=== PATIENT | male | born 1955 | race Caucasian/White ===

== ENCOUNTER 2021-12-20 09:27 | Emergency (ER) | payer MEDICARE, OTHER ==
--- OUTSIDE RECORDS SUMMARY | 2021-12-20 09:32 | XMS REPORT | Continuity of Care Document ---
:1955 Author Organization [facility] t Address [address] [place] [address] Care Team Providers Name Role Phone Karel Hill Attending Clinician Unavailable Edin Bell Attending Clinician Unavailable Edin Bell Admitting Clinician Unavailable Payers Payer Name Policy Type Policy Number Effective Date Expiration Date [facility] [id number] 2021 (MEDICARE 00:00:00 REPLACEMENT HMO) Problems This patient has no known problems. Allergies, Adverse Reactions, Alerts This patient has no known allergies or adverse reactions. Medications This patient has no known medications. Procedures This patient has no known procedures. Encounters Start End Encounter Admission Attending Care Care Encounter Source Date/Time Date/Time Type Type Clinicians Facility Department ID 2021-11-20 Outpatient Hill, [facility] [id number] Common 12:02:00 Karel [facility] 2021-10-05 Outpatient Hill, [facility] [id number] Common 08:42:00 Karel [facility] 2021-09-12 Outpatient Hill, [facility] [id number] Common 10:00:20 Karel [facility] 2021-06-13 Outpatient Hill, [facility] [id number] Common 09:22:02 Karel [facility] 2021-05-23 Outpatient Hill, [facility] [id number] Common 14:38:41 Karel [facility] 2021-05-23 Outpatient Hill, [facility] [id number] Common 14:30:24 [facility] 2021-05-23 Outpatient Hill, [facility] [id number] Common 14:25:50 [facility] [address] [facility] 2021-05-23 Outpatient Hill, [facility] [id number] Common 14:24:20 [facility] [address] [facility] 2021-05-23 Outpatient Hill, [facility] [id number] Common 13:49:29 [facility] [address] [facility] 2021-05-23 Outpatient Hill, [facility] [id number] Common 13:37:10 [facility] [address] [facility] 2021-05-23 Outpatient Hill, [facility] [id number] Common 13:29:57 [facility] [address] [facility] 2021-05-23 Outpatient Hill, [facility] [id number] Common 13:29:04 [facility] [address] [facility] 2021-05-23 Outpatient [facility] ST[facility] [id number] Common 13:28:51 [address] [facility] 2021-05-23 Outpatient [facility] [id number] Common 13:24:[address] [place] [address] 2021-05-23 Outpatient [facility] [id number] Common 13:12:[address] [place] [address] 2021-05-23 Outpatient Bell, [facility] [id number] Common 12:53:[address] [place] [address] 2021-05-23 Outpatient Bell, [facility] [id number] Common 12:50:[address] [place] [address] 2021-12-03 2021-12-03 ambulatory [facility] [id number] Common 00:00:00 00:00:00 [facility] 2021-11-21 2021-11-21 ambulatory [facility] [id number] Common 00:00:00 00:00:00 [facility] 2021-11-20 2021-11-20 ambulatory [facility] ST[facility] [id number] Common 00:00:00 00:00:00 [facility] 2021-11-19 2021-11-19 ambulatory [facility] ST[facility] [id number] Common 00:00:00 00:00:00 [facility] 2021-11-09 2021-11-09 Outpatient DMG DMG [id number] [facility] 07:18:00 07:18:00 [facility] 2021-10-05 2021-10-05 ambulatory [facility] ST[facility] [id number] Common 00:00:00 00:00:00 [facility] 2021-09-28 2021-09-28 ambulatory STL[facility]C ST[facility] [id number] Common 00:00:00 00:00:00 [facility] 2021-09-28 2021-09-28 ambulatory STLMLC ST[facility] [id number] Common 00:00:00 00:00:00 [facility] 2021-09-27 2021-09-27 ambulatory [facility]C ST[facility] [id number] Common 00:00:00 00:00:00 [facility] 2021-09-17 2021-09-17 ambulatory STLMLC STL[facility] [id number] Common 00:00:00 00:00:00 [facility] 2021-09-14 2021-09-14 ambulatory STL[facility]C ST[facility] [id number] Common 00:00:00 00:00:00 [facility] 2021-08-22 2021-08-22 ambulatory STLMLC STL[facility]C [id number] Common 00:00:00 00:00:00 [facility] 2021-08-10 2021-08-10 ambulatory STLMLC STL[facility]C [id number] Common 00:00:00 00:00:00 [facility] 2021-08-08 2021-08-08 ambulatory STLMLC STL[facility]C [id number] Common 00:00:00 00:00:00 [facility] 2021-07-17 2021-07-17 ambulatory STLMLC STL[facility] [id number] Common 00:00:00 00:00:00 [facility] 2021-07-17 2021-07-17 ambulatory STLMLC STLMLC [id number] Common 00:00:00 00:00:00 [facility] 2021-06-27 2021-06-27 Outpatient DMG DMG [id number] [facility] 09:01:00 09:01:00 [facility] 2021-06-18 2021-06-18 ambulatory STLMLC STL[facility]C [id number] Common 00:00:00 00:00:00 [facility] 2021-06-14 2021-06-14 ambulatory STLMLC ST[facility]C [id number] Common 00:00:00 00:00:00 [facility] 2021-06-14 2021-06-14 ambulatory STLMLC STL[facility]C [id number] Common 00:00:00 00:00:00 [facility] 2021-06-13 2021-06-13 ambulatory STLMLC STLMLC [id number] Common 00:00:00 00:00:00 [facility] 2021-06-08 2021-06-08 ambulatory STLMLC STL[facility]C [id number] Common 00:00:00 00:00:00 [facility] 2021-05-17 2021-05-17 ambulatory STLMLC STLMLC [id number] Common 00:00:00 00:00:00 [facility] 2021-05-15 2021-05-15 ambulatory STLMLC STLMLC [id number] Common 00:00:00 00:00:00 [facility] 2021-05-15 2021-05-15 ambulatory STLMLC STL[facility]C [id number] Common 00:00:00 00:00:00 [facility] 2021-05-01 2021-05-01 ambulatory STLMLC STLMLC [id number] Common 00:00:00 00:00:00 [facility] 2021-04-10 2021-04-10 ambulatory STLMLC STL[facility]C [id number] Common 00:00:00 00:00:00 [facility] 2021-04-09 2021-04-09 ambulatory STLMLC STL[facility]C [id number] Common 00:00:00 00:00:00 [facility] 2021-04-03 2021-04-03 ambulatory STLMLC STL[facility]C [id number] Common 00:00:00 00:00:00 [facility] 2021-04-02 2021-04-02 ambulatory STLMLC STL[facility]C [id number] Common 00:00:00 00:00:00 [facility] 2021-03-14 2021-03-14 ambulatory STLMLC STL[facility]C [id number] Common 00:00:00 00:00:00 [facility] 2021-03-14 2021-03-14 ambulatory STLMLC STL[facility]C [id number] Common 00:00:00 00:00:00 [facility] 2021-03-12 2021-03-12 ambulatory STLMLC STL[facility]C [id number] Common 00:00:00 00:00:00 [facility] 2021-02-22 2021-02-22 Outpatient DMG [id number] [facility] 08:03:00 08:03:00 [facility] 2021-01-23 2021-01-23 Outpatient STLMLC STLMLC [id number] Common 00:00:00 00:00:00 [facility] 2021-01-22 2021-01-22 Outpatient STLMLC STL[facility]C [id number] Common 00:00:00 00:00:00 [facility] 2021-01-04 2021-01-04 Outpatient STLMLC STL[facility]C [id number] Common 00:00:00 00:00:00 [facility] 2021-01-02 2021-01-02 Outpatient STLMLC STL[facility]C [id number] Common 00:00:00 00:00:00 [facility] 2020-12-28 2020-12-28 Outpatient STLMLC STLMLC [id number] Common 00:00:00 00:00:00 [facility] 2020-12-27 2020-12-27 Outpatient STLMLC STLMLC [id number] Common 00:00:00 00:00:00 [facility] 2020-12-19 2020-12-19 Outpatient STLMLC STLMLC [id number] Common 00:00:00 00:00:00 [facility] 2020-12-19 2020-12-19 Outpatient STLMLC STLMLC [id number] Common 00:00:00 00:00:00 [facility] 2020-12-06 2020-12-06 Outpatient STLMLC STLMLC [id number] Common 00:00:00 00:00:00 [facility] 2020-12-04 2020-12-04 Outpatient STLMLC STLMLC [id number] Common 00:00:00 00:00:00 [facility] 2020-12-04 2020-12-04 Outpatient STLMLC STL[facility]C [id number] Common 00:00:00 00:00:00 [facility] 2020-12-04 2020-12-04 Outpatient STLMLC STL[facility]C [id number] Common 00:00:00 00:00:00 [facility] 2020-11-27 2020-11-27 Outpatient STLMLC STLMLC [id number] Common 00:00:00 00:00:00 [facility] 2020-11-23 2020-11-23 Outpatient STLMLC STLMLC [id number] Common 00:00:00 00:00:00 [facility] Results This patient has no known results.
[2021-12-20] MEDS ORDERED: HYDROCODONE/APAP 5/325 MG TAB ONE (09:59)
--- NOTE | 2021-12-20 10:42 | RAD REPORT ---
EXAM DESCRIPTION: RAD - Shoulder Left 2 View - 12/20/2021 10:25 am CLINICAL HISTORY: PAIN, fall with shoulder pain COMPARISON: No comparisons TECHNIQUE: Internal and external rotation views of the left shoulder were obtained. FINDINGS: There is no fracture or dislocation. Mild AC joint degenerative changes are present with i nferiorly directed spurring. The acromial humeral joint space is significantly narrowed. No soft tiss ue calcifications. This superior migration of the humeral head can be seen with chronic rotator cuff tear. No pathologic process. IMPRESSION: Left shoulder degenerative change with probable chronic rotator cuff tear. No fracture, dislocation or acute finding.
--- NOTE | 2021-12-20 10:43 | RAD REPORT ---
EXAM DESCRIPTION: RAD - Hip Right 2 View - 12/20/2021 10:25 am CLINICAL HISTORY: PAIN COMPARISON: No comparisons FINDINGS: AP and frog-leg views of the right hip were obtained. There is no fracture or dislocation. No AVN or focal head abnormality. Mild degenerative change at th e hip joint with medial joint space narrowing and minimal acetabular marginal spurring. Superior and inferior pubic rami appear intact. Partially imaged right hemipelvis shows no identifiab le fracture. IMPRESSION: Mild right hip joint degenerative change. No acute fractures seen.
--- NOTE | 2021-12-20 10:48 | EDPHYS ---
Physician Documentation [facility] Name: Rupert Augustin Age: 66 yrs Sex: Male : 1955 Arrival Date: 12/20/2021 Time: 09:30 Bed 9 Private MD: Sergio [facility] ED Physician Hussein Jasso HPI: 12/20 09:44 This 66 yrs old Male presents to ER via Ambulatory with complaints of Fall Injury, Left pm1 Shoulder Pain, Right Hip Pain. 09:44 Details of fall: The patient fell from a height, 1 foot step stool. Onset: The pm1 symptoms/episode began/occurred yesterday. Associated injuries: The patient sustained left shoulder, painful injury, right hip, painful injury. Severity of symptoms: in the emergency department the symptoms are unchanged. The patient has not experienced similar symptoms in the past, Patient has not experienced a fall injury of this nature in the past but he has a non-operable left rotator cuff tear that is being managed by Dr Natarajan with steroid injections to his shoulders. The patient has not recently seen a physician. 66-year-old male presenting to the ER with complaints left shoulder and right hip pain status post fall. Patient was standing on a 1 foot step stool and cleaning his ceiling fan with the swifter in his left hand. The step stool slipped out from underneath him and he landed on his back. Landed on his left shoulder and right hip at the same time. Patient denies hitting his head on the ground. Negative LOC, headache, head injury, neck pain. Patient is able to walk but reports pain to his right hip. Chronic bilateral shoulder pain present that is being managed by Dr. Natarajan. Patient receives scheduled steroid injections to bilateral shoulders. Patient's left arm was extended with a Kathy through his hand when he fell. Patient reports pain with attempting to raise his left arm. Patient has an appointment with Dr. Natarajan scheduled for next week. Historical: - Allergies: 09:42 No Known Allergies; iw - PMHx: 09:42 Hypertensive disorder; iw - Immunization history:: Adult Immunizations unknown. - Social history:: Smoking status: unknown. ROS: 09:44 Constitutional: Negative for fever, chills, and weight loss, Neck: Negative for injury, pm1 pain, and swelling, Cardiovascular: Negative for chest pain, palpitations, and edema, Respiratory: Negative for shortness of breath, cough, wheezing, and pleuritic chest pain, Abdomen/GI: Negative for abdominal pain, nausea, vomiting, diarrhea, and constipation, Back: Negative for injury and pain. 09:44 Skin: Negative for injury, rash, and discoloration, Neuro: Negative for headache, weakness, numbness, tingling, and seizure. 09:44 MS/extremity: Positive for pain, of the left shoulder and right hip, Negative for deformity. 09:44 All other systems are negative. Exam: 09:44 Constitutional: This is a well developed, well nourished patient who is awake, alert, pm1 and in no acute distress. Head/Face: Normocephalic, atraumatic. 09:44 Skin: Warm, dry with normal turgor. Normal color with no rashes, no lesions, and no evidence of cellulitis. 09:44 Cardiovascular: Exam negative for acute changes, Rate: normal, Rhythm: regular, Pulses: no pulse deficits are appreciated. 09:44 Respiratory: Exam negative for acute changes, respiratory distress, shortness of breath. 09:44 Abdomen/GI: Exam negative for acute changes, Inspection: abdomen appears normal, Palpation: abdomen is soft and non-tender, in all quadrants. 09:44 Back: Exam negative for acute changes, pain, is absent, vertebral tenderness, is not appreciated, muscle spasm, is not present. 09:44 Musculoskeletal/extremity: Extremities: grossly normal except: noted in the right hip: pain, tenderness, Patient is able to walk, There is no evidence of deformity, noted in the anterior aspect of left shoulder: tenderness, no evidence of deformity. 09:44 Neuro: Exam negative for acute changes, Orientation: is normal, Mentation: is normal, Motor: is normal, moves all fours. Vital Signs: 09:43 BP 149 / 92; Pulse 72; Resp 16; Temp 98.3; Pulse Ox 100% on R/A; iw MDM: 09:39 Patient medically screened. pm1 10:45 Data reviewed: vital signs. Data interpreted: Pulse oximetry: on room air is 100 %. pm1 Interpretation: normal. Counseling: I had a detailed discussion with the patient and/or guardian regarding: the historical points, exam findings, and any diagnostic results supporting the discharge/admit diagnosis, radiology results, the need for outpatient follow up, a orthopedic surgeon, to return to the emergency department if symptoms worsen or persist or if there are any questions or concerns that arise at home. 12/20 09:44 Order name: Shoulder Left (2 View) XRAY; Complete Time: 10:43 pm1 12/20 09:44 Order name: Hip Right 2 View XRAY; Complete Time: 10:45 pm1 12/20 09:44 Order name: Sling; Complete Time: 09:56 pm1 Administered Medications: 09:56 Drug: HYDROcodone-acetaminophen 5 mg-325 mg 1 tabs Route: PO; iw 10:30 Follow up: Response: No adverse reaction; Pain is decreased iw Disposition: 12/21 10:49 Co-signature as Attending Physician, Hussein Jasso DO I agree with the assessment and ms3 plan of care. Disposition Summary: 12/20/21 10:47 Discharge Ordered Location: Home pm1 Problem: new pm1 Symptoms: have improved pm1 Condition: Stable pm1 Diagnosis - Pain in left shoulder pm1 - Fall (on) (from) unspecified stairs and steps pm1 - Pain in right hip pm1 Followup: pm1 - With: Emergency Department - When: As needed - Reason: Worsening of condition Followup: pm1 - With: Lucho Natarajan MD - When: 2 - 3 days - Reason: Recheck today's complaints, Continuance of care, Re-evaluation by your physician Discharge Instructions: - Discharge Summary Sheet pm1 - Fall Prevention in the Home, Adult pm1 - Shoulder Pain pm1 - Hip Pain pm1 - How to Use a Sling pm1 Forms: - Medication Reconciliation Form pm1 - Thank You Letter pm1 - Antibiotic Education pm1 - Prescription Opioid Use pm1 Prescriptions: - Lidoderm 5 % Topical adhesive patch,medicated - apply 1 patch by TRANSDERMAL route once daily As needed 12 hours on and 12 pm1 hours off in a 24 hour period; 30 patch; Refills: 0, Product Selection Permitted - Tylenol-Codeine #3 300 mg-30 mg Oral - take 2 tablet by ORAL route every 6 hours As needed; 20 tablet; Refills: 0, pm1 Product Selection Permitted Signatures: Dispatcher [employer] Livier Esqueda RN RN iw Kavin Rodríguez, [employer] pm1 Jasso, Hussein, DO DO ms3
--- NOTE | 2021-12-20 10:48 | ER ---
Nurse's Notes [facility] Name: Rupert Augustin Age: 66 yrs Sex: Male : 1955 Arrival Date: 12/20/2021 Time: 09:30 Bed 9 Private MD: Karel Hill Diagnosis: Pain in left shoulder;Fall (on) (from) unspecified stairs and steps;Pain in right hip Presentation: 12/20 09:40 Chief complaint: Patient states: fell off 1 foot step stool yesterday . landed on left iw shoulder and right hip. 09:40 Acuity: ANA 4 iw 09:41 Coronavirus screen: At this time, the client does not indicate any symptoms associated iw with coronavirus-19. Ebola Screen: Patient negative for fever greater than or equal to 101.5 degrees Fahrenheit, and additional compatible Ebola Virus Disease symptoms Patient denies exposure to infectious person. Patient denies travel to an Ebola-affected area in the 21 days before illness onset. No symptoms or risks identified at this time. Initial Sepsis Screen: Does the patient meet any 2 criteria? No. Patient's initial sepsis screen is negative. Does the patient have a suspected source of infection? No. Patient's initial sepsis screen is negative. Risk Assessment: Do you want to hurt yourself or someone else? Patient reports no desire to harm self or others. Onset of symptoms was December 19, 2021. 09:41 Method Of Arrival: Ambulatory iw Triage Assessment: 09:40 General: Appears in no apparent distress. Behavior is calm, cooperative. iw Historical: - Allergies: 09:42 No Known Allergies; iw - PMHx: 09:42 Hypertensive disorder; iw - Immunization history:: Adult Immunizations unknown. - Social history:: Smoking status: unknown. Screenin:05 Abuse screen: Denies threats or abuse. Denies injuries from another. Nutritional iw screening: No deficits noted. Tuberculosis screening: No symptoms or risk factors identified. Fall Risk Fall in past 12 months (25 points). Assessment: 09:40 General: Appears in no apparent distress. Pain: Complains of pain in left arm and iw anterior aspect of left shoulder. Neuro: Level of Consciousness is awake, alert, obeys commands, Oriented to person, place, time, situation. Respiratory: Respiratory effort is even, unlabored, Respiratory pattern is regular. Derm: Skin is intact, is healthy with good turgor. Musculoskeletal: Range of motion: limited in anterior aspect of left shoulder and right leg. Vital Signs: 09:43 BP 149 / 92; Pulse 72; Resp 16; Temp 98.3; Pulse Ox 100% on R/A; iw ED Course: 09:30 Patient arrived in ED. am2 09:30 Karel Hill DO is Private Physician. am2 09:38 Kavin Rodríguez NP is [facility] pm1 09:38 Hussein Jasso DO is Attending Physician. pm1 09:41 Triage completed. iw 09:41 Arm band placed on. iw 09:50 Livier Soto RN is Primary Nurse. iw 10:26 Shoulder Left (2 View) XRAY In Process Unspecified. EDMS 10:26 Hip Right 2 View XRAY In Process Unspecified. EDMS 10:46 Lucho Natarajan MD is Referral Physician. pm1 11:06 No provider procedures requiring assistance completed. Patient did not have IV access iw during this emergency room visit. Administered Medications: 09:56 Drug: HYDROcodone-acetaminophen 5 mg-325 mg 1 tabs Route: PO; iw 10:30 Follow up: Response: No adverse reaction; Pain is decreased iw Medication: 09:45 VIS not applicable for this client. iw Outcome: 10:47 Discharge ordered by . pm1 11:06 Discharged to home ambulatory. iw 11:06 Condition: good 11:06 Discharge instructions given to 11:07 Patient left the ED. iw Signatures: Dispatcher [employer] EDMS Livier Soto RN RN iw Kavin Rodríguez NP CAR MANAGER pm1 Debbie Weiner am2 Corrections: (The following items were deleted from the chart) 09:45 09:43 Pulse 72bpm; Resp 16bpm; Pulse Ox 100% RA; Temp 98.3F; iw iw
[2021-12-20 11:22] VITALS: BP 149/92; TEMP 98.3; O2SAT 100
== END 2021-12-20 11:07 | disposition home or self-care (01) ==
LOC: ER 09:27
DX: M25.512 Pain in left shoulder (principal); M25.551 Pain in right hip; W10.8XXA Fall (on) (from) other stairs and steps, initial encounter; I10 Essential (primary) hypertension
CPT/HCPCS: 99283

== ENCOUNTER 2022-01-24 13:23 | Emergency (ER) | payer MEDICARE ==
--- OUTSIDE RECORDS SUMMARY | 2022-01-24 13:27 | XMS REPORT | Continuity of Care Document ---
:1955 Author Organization [facility] t Address [address] [place] [address] Care Team Providers Name Role Phone Sergio Karel Sun Attending Clinician Unavailable Edin Bell Attending Clinician Unavailable Edin Bell Admitting Clinician Unavailable Payers Payer Name Policy Type Policy Number Effective Date Expiration Date [facility] [id number] 2021 (MEDICARE 00:00:00 REPLACEMENT HMO) Problems This patient has no known problems. Allergies, Adverse Reactions, Alerts This patient has no known allergies or adverse reactions. Medications This patient has no known medications. Procedures This patient has no known procedures. Encounters Start End Encounter Admission Attending Care Care Encounter Source Date/Time Date/Time Type Type Clinicians Facility Department ID 2022-01-15 [facility] [id number] Common 09:06:01 Karel [facility] 2021-12-21 Out[facility], [facility] [id number] Common 09:23:01 Karel [facility] 2021-11-20 Out[facility], [facility] [id number] Common 12:02:00 Karel [facility] 2021-10-05 Outpatient Hill, [facility] [id number] Common 08:42:00 Karel [facility] 2021-09-12 Outpatient Hill, [facility] [id number] Common 10:00:20 Karel [facility] 2021-06-13 Outpatient Hill, [facility] [id number] Common 09:22:02 Karel [facility] 2021-05-23 Outpatient Hill, [facility] [id number] Common 14:38:41 Karel [facility] 2021-05-23 Outpatient Hill, [facility] [id number] Common 14:30:24 Karel [facility] 2021-05-23 Outpatient Hill, [facility] [id number] Common 14:25:50 Karel [facility] 2021-05-23 Outpatient Hill, [facility] [id number] Common 14:24:20 Karel [id number] [facility] 2021-05-23 Outpatient Hill, [facility] [id number] Common 13:49:29 Karel [id number] [facility] 2021-05-23 Outpatient Hill, [facility] [id number] Common 13:37:10 Karel [id number] [facility] 2021-05-23 Outpatient Hill, [facility] [id number] Common 13:29:57 Karel [id number] [facility] 2021-05-23 Outpatient Hill, [facility] [id number] Common 13:29:04 Karel 40334 [facility] 2021-05-23 Outpatient [facility] [id number] Common 13:28:51 [id number] [facility] 2021-05-23 Outpatient [facility] [id number] Common 13:24:34 [id number] [facility] 2021-05-23 Outpatient [facility] [id number] Common 13:12:48 [id number] [facility] 2021-05-23 Outpatient Bell, [facility] [id number] Common 12:53:[address] 2021-05-23 Outpatient Bell, [facility] [id number] Common 12:50:58 Edin 36643 [facility] 2022-01-10 2022-01-10 ambulatory [facility] [id number] Common 00:00:00 00:00:00 [facility] 2022-01-08 2022-01-08 ambulatory [facility] [id number] Common 00:00:00 00:00:00 [facility] 2022-01-04 2022-01-04 ambulatory [facility] ST[facility] [id number] Common 00:00:00 00:00:00 [facility] 2021-12-24 2021-12-24 ambulatory [facility] ST[facility] [id number] Common 00:00:00 00:00:00 [facility] 2021-12-03 2021-12-03 ambulatory [facility] ST[facility] [id number] Common 00:00:00 00:00:00 [facility] 2021-11-21 2021-11-21 ambulatory [facility] ST[facility] [id number] Common 00:00:00 00:00:00 [facility] 2021-11-20 2021-11-20 ambulatory [facility] ST[facility] [id number] Common 00:00:00 00:00:00 [facility] 2021-11-19 2021-11-19 ambulatory [facility] ST[facility] [id number] Common 00:00:00 00:00:00 [facility] 2021-11-09 2021-11-09 Outpatient DMG DMG [id number] [facility] 07:18:00 07:18:00 [facility] 2021-10-05 2021-10-05 ambulatory [facility] ST[facility] [id number] Common 00:00:00 00:00:00 [facility] 2021-09-28 2021-09-28 ambulatory STL[facility] STL[facility] [id number] Common 00:00:00 00:00:00 [facility] 2021-09-28 2021-09-28 ambulatory STL[facility]C STL[facility]C [id number] Common 00:00:00 00:00:00 [facility] 2021-09-27 2021-09-27 ambulatory STLMLC STL[facility]C [id number] Common 00:00:00 00:00:00 [facility] 2021-09-17 2021-09-17 ambulatory STLMLC STL[facility]C [id number] Common 00:00:00 00:00:00 [facility] 2021-09-14 2021-09-14 ambulatory STLMLC STL[facility]C [id number] Common 00:00:00 00:00:00 [facility] 2021-08-22 2021-08-22 ambulatory STLMLC STLMLC [id number] Common 00:00:00 00:00:00 [facility] 2021-08-10 2021-08-10 ambulatory STLMLC STL[facility]C [id number] Common 00:00:00 00:00:00 [facility] 2021-08-08 2021-08-08 ambulatory STL[facility]C STL[facility]C [id number] Common 00:00:00 00:00:00 [facility] 2021-07-17 2021-07-17 ambulatory STLMLC STL[facility]C [id number] Common 00:00:00 00:00:00 [facility] 2021-07-17 2021-07-17 ambulatory STL[facility]C STL[facility]C [id number] Common 00:00:00 00:00:00 [facility] 2021-06-27 2021-06-27 Outpatient DMG [id number] [id number] [facility] 09:01:00 09:01:00 [id number] 2021-06-18 2021-06-18 ambulatory STLMLC STL[facility]C [id number] Common 00:00:00 00:00:00 [facility] 2021-06-14 2021-06-14 ambulatory STLMLC STL[facility]C [id number] Common 00:00:00 00:00:00 [facility] 2021-06-14 2021-06-14 ambulatory STLMLC STL[facility]C [id number] Common 00:00:00 00:00:00 [facility] 2021-06-13 2021-06-13 ambulatory STLMLC STLMLC [id number] Common 00:00:00 00:00:00 [facility] 2021-06-08 2021-06-08 ambulatory STLMLC STL[facility]C [id number] Common 00:00:00 00:00:00 [facility] 2021-05-17 2021-05-17 ambulatory STL[facility]C STL[facility]C [id number] Common 00:00:00 00:00:00 [facility] 2021-05-15 2021-05-15 ambulatory STLMLC STL[facility]C [id number] Common 00:00:00 00:00:00 [facility] 2021-05-15 2021-05-15 ambulatory STLMLC STL[facility]C [id number] Common 00:00:00 00:00:00 [facility] 2021-05-01 2021-05-01 ambulatory STLMLC STL[facility]C [id number] Common 00:00:00 00:00:00 [facility] 2021-04-10 2021-04-10 ambulatory STLMLC STL[facility]C [id number] Common 00:00:00 00:00:00 [facility] 2021-04-09 2021-04-09 ambulatory STL[facility]C STL[facility]C [id number] Common 00:00:00 00:00:00 [facility] 2021-04-03 2021-04-03 ambulatory STLMLC STL[facility]C [id number] Common 00:00:00 00:00:00 [facility] 2021-04-02 2021-04-02 ambulatory STL[facility]C STL[facility]C [id number] Common 00:00:00 00:00:00 [facility] 2021-03-14 2021-03-14 ambulatory STLMLC STL[facility]C [id number] Common 00:00:00 00:00:00 [facility] 2021-03-14 2021-03-14 ambulatory STLMLC STL[facility]C [id number] Common 00:00:00 00:00:00 [facility] 2021-03-12 2021-03-12 ambulatory STL[facility]C STL[facility]C [id number] Common 00:00:00 00:00:00 [facility] 2021-02-22 2021-02-22 Outpatient DMG [id number] [id number] [facility] 08:03:00 08:03:00 [id number] 2021-01-23 2021-01-23 Outpatient STL[facility]C STL[facility]C [id number] Common 00:00:00 00:00:00 [facility] 2021-01-22 2021-01-22 Outpatient STLMLC STL[facility]C [id number] Common 00:00:00 00:00:00 [facility] 2021-01-04 2021-01-04 Outpatient STL[facility]C STL[facility]C [id number] Common 00:00:00 00:00:00 [facility] 2021-01-02 2021-01-02 Outpatient STLMLC STL[facility]C [id number] Common 00:00:00 00:00:00 [facility] 2020-12-28 2020-12-28 Outpatient STLMLC STL[facility]C [id number] Common 00:00:00 00:00:00 [facility] 2020-12-27 2020-12-27 Outpatient STLMLC STL[facility]C [id number] Common 00:00:00 00:00:00 [facility] 2020-12-19 2020-12-19 Outpatient STLMLC STL[facility]C [id number] Common 00:00:00 00:00:00 [facility] 2020-12-19 2020-12-19 Outpatient STLMLC STL[facility]C [id number] Common 00:00:00 00:00:00 [facility] 2020-12-06 2020-12-06 Outpatient STLMLC STL[facility]C [id number] Common 00:00:00 00:00:00 [facility] 2020-12-04 2020-12-04 Outpatient STLMLC STL[facility]C [id number] Common 00:00:00 00:00:00 [facility] 2020-12-04 2020-12-04 Outpatient STLMLC STL[facility]C [id number] Common 00:00:00 00:00:00 [facility] 2020-12-04 2020-12-04 Outpatient STLMLC STL[facility]C [id number] Common 00:00:00 00:00:00 [facility] 2020-11-27 2020-11-27 Outpatient STLMLC STL[facility]C [id number] Common 00:00:00 00:00:00 [facility] 2020-11-23 2020-11-23 Outpatient STLMLC STLMLC [id number] Common 00:00:00 00:00:00 [facility] Results This patient has no known results.
[2022-01-24] MEDS ORDERED: HYDROCODONE/APAP 10/325 TAB ONE (14:15)
--- NOTE | 2022-01-24 14:24 | RAD REPORT ---
EXAM DESCRIPTION: CT - Chest Abd Pelvis Wo Con - 01/24/2022 2:08 pm CLINICAL HISTORY: Right rib cage pain s/p fall1 week earlier COMPARISON: No comparisons TECHNIQUE: Axial 5 millimeter thick images of the chest, abdomen and pelvis were obtained without IV contrast. Oral contrast was administered. All CT scans are performed using dose optimization technique as appropriate and may include automated exposure control or mA/KV adjustment according to patient size. FINDINGS: The lungs are clear of pulmonary contusion, mass or infiltrate. No pneumothorax or pleura l effusion. No chest wall mass or abnormal axillary lymphadenopathy seen. Mediastinal and hilar reg ions show no mass or lymphadenopathy. No significant cardiac finding. Nondisplaced fractures of the right seventh-ninth ribs present. No pathologic change. The liver, spleen and pancreas show no significant findings for non contrast imaging. Gallbladder an d biliary tree are normal. Small liver cyst is present lateral aspect right lobe. No hydronephrosis or suspicious renal mass. Isodense masses and pyelonephritis cannot be excluded on non contrast imaging. Small low-density exophytic 2.2 centimeter mass lateral mid left kidney is almo st certainly an incidental cyst. No adrenal abnormalities. No urinary bladder abnormalities. No dilated bowel loops or focal ball bowel wall thickening. No free air, free fluid or inflammatory stranding. No bulky lymphadenopathy or mass. A 15 millimeter umbilical hernia is present. Minimal fa t only right inguinal hernia is present. No acute bone finding. Patient has L5 spondylolysis without spondylolisthesis. Mid and lower lumbar e ndplate and facet degenerative changes are present. IMPRESSION: Nondisplaced fractures of the right 7th-9th ribs with no pathologic bone change. There is no pneumothorax, pulmonary contusion or other rib fracture related findings. CT abdomen and pelvis imaging shows no significant or suspicious finding.
--- NOTE | 2022-01-24 14:40 | ER ---
Nurse's Notes [facility] Name: Rupert Augustin Age: 66 yrs Sex: Male : 1955 Arrival Date: 01/24/2022 Time: 13:26 Bed 20 Private MD: Karel Hill Diagnosis: Multiple fractures of ribs, right side-nondisplaced Presentation: 01/24 13:38 Chief complaint: Patient states: fall 1 week ago after tripping over his dog, landed on [facility] his right side. Was having right rib pain after the fall but while trying to do yard work today felt like he re-injured that side and made the pain worse. Denies any chest pain or SOB. Coronavirus screen: Vaccine status: Patient reports receiving the 2nd dose of the covid vaccine. Ebola Screen: Patient negative for fever greater than or equal to 101.5 degrees Fahrenheit, and additional compatible Ebola Virus Disease symptoms Patient denies exposure to infectious person. Patient denies travel to an Ebola-affected area in the 21 days before illness onset. Initial Sepsis Screen: Does the patient meet any 2 criteria? No. Patient's initial sepsis screen is negative. Does the patient have a suspected source of infection? No. Patient's initial sepsis screen is negative. Risk Assessment: Do you want to hurt yourself or someone else? Patient reports no desire to harm self or others. Onset of symptoms was January 17, 2022. 13:38 Method Of Arrival: Ambulatory mb8 13:38 Acuity: ANA 4 mb8 Triage Assessment: 13:45 General: Appears uncomfortable, Behavior is calm, cooperative, appropriate for age. mb8 Historical: - Allergies: 13:42 No Known Allergies; mb8 - PMHx: 13:42 Hypertensive disorder; mb8 - Social history:: Smoking status: Patient denies any tobacco usage or history of. Screenin:44 Abuse screen: Denies threats or abuse. Denies injuries from another. Nutritional mb8 screening: No deficits noted. Tuberculosis screening: No symptoms or risk factors identified. Fall Risk None identified. Assessment: 13:43 Pain: Complains of pain in right side rib cage Pain does not radiate. Pain currently is mb8 10 out of 10 on a pain scale. Quality of pain is described as aching, Pain began 1 week ago Alleviated by coughing and deep breathing. Vital Signs: 13:38 BP 149 / 93 LA (auto/lg); Pulse 82 LA; Resp 16 S; Temp 98.4; Pulse Ox 100% on R/A; mb8 Weight 79.83 kg; Height 5 ft. 10 in. (177.80 cm); Pain 10/10; 15:09 BP 138 / 70; Pulse 74; Resp 18; Pulse Ox 100% ; Pain 4/10; mb8 13:38 Body Mass Index 25.25 (79.83 kg, 177.80 cm) mb8 ED Course: 13:26 Patient arrived in ED. rg4 13:27 Karel Hill DO is Private Physician. rg4 13:32 Kavin Rod[facility] pm1 13:32 Miguel Vaughan MD is Attending Physician. pm1 13:37 Jamaal Palmer RN is Primary Nurse. mb8 13:42 Triage completed. mb8 13:43 Arm band placed on. mb8 13:44 Patient has correct armband on for positive identification. Placed in gown. Bed in low mb8 position. Call light in reach. Side rails up X2. Client placed on continuous cardiac and pulse oximetry monitoring. NIBP monitoring applied. 13:44 No provider procedures requiring assistance completed. mb8 14:10 Chest Abd Pelvis Wo Con In Process Unspecified. EDMS 14:48 INCENTIVE SPIROMETRY Sent. mb8 15:09 Patient did not have IV access during this emergency room visit. mb8 Administered Medications: 14:20 Drug: [place] (HYDROcodone-acetaminophen) 10 mg-325 mg 1 tabs Route: PO; mb8 15:02 Follow up: Response: No adverse reaction; Pain is decreased mb8 Medication: 13:44 VIS not applicable for this client. mb8 Outcome: 14:40 Discharge ordered by . pm1 15:09 Discharged to home ambulatory. mb8 15:09 Condition: stable 15:09 Discharge instructions given to patient, Instructed on discharge instructions, follow up and referral plans. no drinking with medication, no driving heavy equipment, medication usage, Demonstrated understanding of instructions, follow-up care, medications, Prescriptions given X 1. 15:10 Patient left the ED. mb8 Signatures: Dispatcher [employer] EDMS Kavin Rodríguez NP BIOLOGY MANAGER pm1 Sarah West rg4 Jamaal Palmer, RN RN mb8
--- NOTE | 2022-01-24 14:40 | EDPHYS ---
Physician Documentation [facility] Name: Rupert Augustin Age: 66 yrs Sex: Male : 1955 Arrival Date: 01/24/2022 Time: 13:26 Bed 20 Private MD: Sergio [facility] ED Physician Miguel Vaughan HPI: 01/24 13:52 This 66 yrs old Male presents to ER via Ambulatory with complaints of Fall 1 wk ago Rib pm1 Pain. 13:52 Details of fall: The patient fell from an upright position, while walking. Onset: The pm1 symptoms/episode began/occurred 1 week(s) ago. Associated injuries: The patient sustained right rib cage area. Severity of symptoms: in the emergency department the symptoms are actually worse. The patient has experienced a previous episode, many years ago, left sided rib fractures from fall in his 20s. The patient has not recently seen a physician. 66-year-old male presents the ER with complaints of fall injury, right rib pain. Patient tripped over his small dog in the kitchen and hit his right rib cage area onto the trash can. Patient reports pain was tolerable but he worked on the yard today and it felt like his rib pain got worse. Therefore presented to the ER for treatment and evaluation. 13:52 Negative for head injury, neck pain, LOC, headache. Patient without any shortness of pm1 breath. Historical: - Allergies: 13:42 No Known Allergies; mb8 - PMHx: 13:42 Hypertensive disorder; mb8 - Social history:: Smoking status: Patient denies any tobacco usage or history of. ROS: 13:52 Constitutional: Negative for fever, chills, and weight loss, Respiratory: Negative for pm1 shortness of breath, cough, wheezing, and pleuritic chest pain. 13:52 Neck: Negative for injury, pain, and swelling, Back: Negative for injury and pain, MS/Extremity: Negative for injury and deformity, Skin: Negative for injury, rash, and discoloration, Neuro: Negative for headache, weakness, numbness, tingling, and seizure. 13:52 Cardiovascular: Positive for right rib pain, Negative for palpitations. 13:52 All other systems are negative. Exam: 13:52 Constitutional: This is a well developed, well nourished patient who is awake, alert, pm1 and in no acute distress. Head/Face: Normocephalic, atraumatic. 13:52 Skin: Warm, dry with normal turgor. Normal color with no rashes, no lesions, and no evidence of cellulitis. MS/ Extremity: Pulses equal, no cyanosis. Neurovascular intact. Full, normal range of motion. 13:52 Eyes: Exam is negative for acute changes, Periorbital structures: no acute changes, Extraocular movements: no acute changes, Conjunctiva: no acute changes, no injection. 13:52 ENT: Exam is negative for acute changes, Mouth: no acute changes, Lips: normal, moist, Oral mucosa: normal, pink and intact, moist. 13:52 Cardiovascular: Exam negative for acute changes, Rate: normal, Rhythm: regular, Pulses: no pulse deficits are appreciated, Heart sounds: normal, normal S1and S2. 13:52 Respiratory: Exam negative for acute changes, respiratory distress, shortness of breath, Breath sounds: are clear throughout. 13:52 Abdomen/GI: Inspection: abdomen appears normal, Palpation: abdomen is soft and non-tender, in all quadrants. 13:52 Neuro: Exam negative for acute changes, Orientation: is normal, Mentation: is normal, Motor: is normal, moves all fours, Gait: is steady, at a normal pace, without difficulty. Vital Signs: 13:38 BP 149 / 93 LA (auto/lg); Pulse 82 LA; Resp 16 S; Temp 98.4; Pulse Ox 100% on R/A; mb8 Weight 79.83 kg; Height 5 ft. 10 in. (177.80 cm); Pain 10/10; 15:09 BP 138 / 70; Pulse 74; Resp 18; Pulse Ox 100% ; Pain 4/10; mb8 13:38 Body Mass Index 25.25 (79.83 kg, 177.80 cm) mb8 MDM: 13:32 Patient medically screened. pm1 14:39 Data reviewed: vital signs. Data interpreted: Pulse oximetry: on room air is 100 %. pm1 Interpretation: normal. Counseling: I had a detailed discussion with the patient and/or guardian regarding: the historical points, exam findings, and any diagnostic results supporting the discharge/admit diagnosis, radiology results, the need for outpatient follow up, to return to the emergency department if symptoms worsen or persist or if there are any questions or concerns that arise at home. 14:58 ED course: [place] and patient with recent prescription for Tylenol #[address] Natarajan for his shoulder pain. Patient reports using up the medication and he had a fall 1 week ago with acute rib fractures found on CT, therefore will discharge the patient home with narcotic pain medications. 01/24 13:52 Order name: CT Chest Abdomen Pelvis W/O Contrast pm1 01/24 13:56 Order name: Chest Abd Pelvis Wo Con; Complete Time: 14:28 EDMS 01/24 14:40 Order name: INCENTIVE SPIROMETRY pm1 Administered Medications: 14:20 Drug: [place] (HYDROcodone-acetaminophen) 10 mg-325 mg 1 tabs Route: PO; mb8 15:02 Follow up: Response: No adverse reaction; Pain is decreased mb8 Disposition: 15:53 PA/DIRECTOR PHONE's history reviewed, patient interviewed, and examined. I agree with assessment [id number] and care plan and confirm the diagnosis (es) above. Attestation: The patient's history, exam findings, diagnostics, and a summary of any interventions or procedures was reviewed in detail with Kavin Rodríguez DIRECTOR PHONE. Disposition Summary: 01/24/22 14:40 Discharge Ordered Location: Home pm1 Problem: new pm1 Symptoms: have improved pm1 Condition: Stable pm1 Diagnosis - Multiple fractures of ribs, right side - nondisplaced pm1 Followup: pm1 - With: Emergency Department - When: As needed - Reason: Worsening of condition Followup: pm1 - With: Private Physician - When: 2 - 3 days - Reason: Recheck today's complaints, Continuance of care, Re-evaluation by your physician Discharge Instructions: - Discharge Summary Sheet pm1 - Rib Fracture pm1 - How to Use an Incentive Spirometer pm1 Forms: - Medication Reconciliation Form pm1 - Thank You Letter pm1 - Antibiotic Education pm1 - Prescription Opioid Use pm1 Prescriptions: - Tylenol-Codeine #3 300 mg-30 mg Oral - take 2 tablet by ORAL route every 6 hours As needed; 20 tablet; Refills: 0, pm1 Product Selection Permitted Signatures: Dispatcher [employer] EDKavin Rico, DIRECTOR PHONE DIRECTOR PHONE pm1 Miguel Vaughan MD MD [id number] Jamaal Palmer RN RN mb8
[2022-01-25 19:11] VITALS: TEMP 98.4; O2SAT 100
[2022-01-25 19:12] VITALS: BP 138/70
== END 2022-01-24 15:10 | disposition home or self-care (01) ==
LOC: ER 13:23
DX: S22.41XA Multiple fractures of ribs, right side, initial encounter for closed fracture (principal); I10 Essential (primary) hypertension
CPT/HCPCS: 71250; 74176; 99283

== ENCOUNTER 2024-09-18 09:41 | Emergency (ER) | payer OTHER ==
--- OUTSIDE RECORDS SUMMARY | 2024-09-18 09:46 | XMS REPORT | Continuity of Care Document ---
Author Name Unknown Address [address] [facility] [address] [place] [address] [facility] Address [address] [facility] [address] [place] [address] Care Team Providers Care Dog Walker Name Role Phone Karel Hill Attending Clinician Unavailable Edin Bell Attending Clinician Unavailable Edin Bell Admitting Clinician Unavailable Payers Payer Name Policy Type Policy Number Effective Date Expirati on Date Source [facility] AAR MCR Advantage (HMO-POS) [id number] [facility] CIGNA [id number] [facility] (MEDICARE REPLACEMENT HMO) [id number] 2021 00:00:00 [employer] MEDICARE C1 [id number] 2020 00:00:00 [facility] [employer] MEDICARE C1 [id number] 2020 00:00:00 [facility] [employer] MEDICARE C1 [id number] 2020 00:00:00 [facility] [employer] MEDICARE C1 [id number] 2020 00:00:00 [facility] Problems Condition Name Condition Details Condition Category Status Onset Date Resolution Date Last Treatment Date Treating Clinician Comments Source [id number] Other chronic pain Problem [facility] [id number] Basal cell carcinoma (BCC), unspecifie d site Problem Common [facility] [id number] Mixed hyperlipid emia Problem Common [facility] [id number] Essential (primary) hypertensi on Problem [facility] Allergic rhinitis Non-season al allergic rhinitis, unspecifie d trigger Problem [facility] [id number] Vitreous floaters of both eyes Problem Common [facility] Gastroesop hageal reflux disease GERD (gastroeso phageal reflux disease) Problem Common [facility] [id number] Tear of left rotator cuff, unspecifie d tear extent, unspecifie d whether traumatic Problem [facility] [id number] Tear of right rotator cuff, unspecifie d tear extent, unspecifie d whether traumatic Problem [facility] [id number] Opiate dependence , continuous Problem [facility] [id number] Loss of appetite Problem [facility] Overweight Overweight (BMI 25.0-29.9) Problem [facility] [id number] Primary osteoarthr itis of left knee Problem [facility] Scoliosis Scoliosis Problem Comm on [facility] [id number] Absolute glaucoma of both eyes Problem [facility] [id number] GERD without esophagiti s Problem [facility] [id number] Rotator cuff arthropath y of right shoulder Problem [facility] Social History Social Habit Start Date Stop Date Quantity Comments Source History of Tobacco Use [facility] Sex Assigned At [facility] Smoking Status Start Date Stop Date Source Never Smoker [facility] Former Smoker 2023-10-08 00:00:00 2023-10-08 00:00:00 [facility] Medications Ordered Medication Name Filled Medication Name Start Date Stop Date Current Medication? Ordering Clinician Indication Dosage Frequency Signature (SIG) Comments Components Source Rosuvastati n Calcium 10 MG Rosuvastati n Calcium 10 MG 2023-04 0 00:00: 00 No 1{table t} QD Rosuvastat in Calcium 10 MG Lisinopril- hydroCHLORO thiazide 20-12.5 MG Lisinopril- hydroCHLORO thiazide 20-12.5 MG 10-07 00:00: 00 No 1{table t} QD Lisinopril -hydroCHLO ROthiazide 20-12.5 MG Pantoprazol e Sodium 40 MG Pantoprazol e Sodium 40 MG 10-02 00:00: 00 No 1{table t} BID Pantoprazo le Sodium 40 MG Famotidine 20 MG Famotidine 20 MG 10-02 00:00: 00 No 1{table t} BID Famotidine 20 MG Dorzolamide HCl-Timolol Mal 2-0.5 % Dorzolamide HCl-Timolol Mal 2-0.5 % 09-01 00:00: 00 No 1{drop_ into_af fected_ eye} BID Dorzolamid e HCl-Timolo l Mal 2-0.5 % Lidocaine Lidocaine 2021-04 0 00:00: 00 No 10mg [facility] Bupivicaine [place] Bupivicaine [place] 928 00:00: 00 No 2.5mg [facility] Kenalog (Triamcinol one) Kenalog (Triamcinol one) 10-02 00:00: 00 No 40mg [facility] Vital Signs Vital Name Observation Time Observation Value Comments S ource height 2024-05-12 08:00:00 70 [in_i] Commo n [facility] weight 2024-05-12 08:00:00 166.0 [lb_av] Co mmon [facility] temperature 2024-05-12 08:00:00 97.7 [degF] Com mon [facility] bmi 2024-05-12 08:00:00 23.82 kg/m2 Comm on [facility] oximetry 2024-05-12 08:00:00 98 % Commo n [facility] respiratory rate 2024-05-12 08:00:00 16 /min [facility] blood pressure systolic 2024-05-12 08:00:00 128 mm[Hg] [facility] blood pressure diastolic 2024-05-12 08:00:00 86 mm[Hg] [facility] height 2024-05-12 08:15:00 70 [in_i] Commo n [facility] weight 2024-05-12 08:15:00 166.0 [lb_av] Co mmon [facility] temperature 2024-05-12 08:15:00 97.7 [degF] Com [facility] bmi 2024-05-12 08:15:00 23.82 kg/m2 Comm on [facility] oximetry 2024-05-12 08:15:00 98 % Commo n [facility] blood pressure systolic 2024-05-12 08:15:00 128 mm[Hg] [facility] blood pressure diastolic 2024-05-12 08:15:00 86 mm[Hg] [facility] height 2024-01-27 08:15:00 70 [in_i] Commo n [facility] weight 2024-01-27 08:15:00 168.6 [lb_av] Co mmon [facility] temperature 2024-01-27 08:15:00 97.3 [degF] Com [facility] bmi 2024-01-27 08:15:00 24.19 kg/m2 Comm on [facility] oximetry 2024-01-27 08:15:00 98 % Commo n [facility] blood pressure systolic 2024-01-27 08:15:00 138 mm[Hg] [facility] blood pressure diastolic 2024-01-27 08:15:00 76 mm[Hg] [facility] height 2024-01-27 08:15:00 70 [in_i] Commo n [facility] weight 2024-01-27 08:15:00 168.6 [lb_av] Co mmon [facility] temperature 2024-01-27 08:15:00 97.3 [degF] Com [facility] bmi 2024-01-27 08:15:00 24.19 kg/m2 Comm on [facility] oximetry 2024-01-27 08:15:00 98 % Commo n [facility] blood pressure systolic 2024-01-27 08:15:00 138 mm[Hg] [facility] blood pressure diastolic 2024-01-27 08:15:00 76 mm[Hg] [facility] height 2023-12-26 09:20:00 70 [in_i] Commo n [facility] weight 2023-12-26 09:20:00 168.4 [lb_av] Co [facility] temperature 2023-12-26 09:20:00 97.3 [degF] Com [facility] bmi 2023-12-26 09:20:00 24.16 kg/m2 Comm on [facility] oximetry 2023-12-26 09:20:00 99 % Commo n [facility] respiratory rate 2023-12-26 09:20:00 17 /min Common [facility] blood pressure systolic 2023-12-26 09:20:00 139 mm[Hg] [facility] blood pressure diastolic 2023-12-26 09:20:00 88 mm[Hg] Common [facility] height 2023-10-08 09:40:00 70 [in_i] Commo n [facility] weight 2023-10-08 09:40:00 173.0 [facility]lb_av[facility]-08 09:40:00 97.3 [degF] Com [facility] bmi 2023-10-08 09:40:00 24.82 kg/m2 Comm on [facility] oximetry 2023-10-08 09:40:00 99 % Commo n [facility] respiratory rate 2023-10-08 09:40:00 18 /min [facility] blood pressure systolic 2023-10-08 09:40:00 140 mm[Hg] [facility] blood pressure diastolic 2023-10-08 09:40:00 84 mm[Hg] [facility] height 2023-07-28 08:50:00 70 [in_i] Commo n [facility] weight 2023-07-28 08:50:00 171.0 [lb_av] Co [facility] temperature 2023-07-28 08:50:00 97.2 [degF] Com [facility] bmi 2023-07-28 08:50:00 24.53 kg/m2 Comm on [facility] oximetry 2023-07-28 08:50:00 98 % Commo n [facility] respiratory rate 2023-07-28 08:50:00 18 /min [facility] blood pressure systolic 2023-07-28 08:50:00 123 mm[Hg] [facility] blood pressure diastolic 2023-07-28 08:50:00 77 mm[Hg] Common [facility] height 2023-05-08 08:00:00 70 [in_i] Commo n [facility] weight 2023-05-08 08:00:00 175.8 [lb_av] Co [facility] temperature 2023-05-08 08:00:00 97.5 [degF] Com [facility] bmi 2023-05-08 08:00:00 25.22 kg/m2 Comm on [facility] oximetry 2023-05-08 08:00:00 98 % Commo n [facility] blood pressure systolic 2023-05-08 08:00:00 138 mm[Hg] [facility] blood pressure diastolic 2023-05-08 08:00:00 72 mm[Hg] [facility] height 2023-05-08 08:00:00 70 [in_i] Commo n [facility] weight 2023-05-08 08:00:00 175.8 [lb_av] Co mmon [facility] temperature 2023-05-08 08:00:00 97.5 [degF] Com mon [facility] bmi 2023-05-08 08:00:00 25.22 kg/m2 Comm on [facility] oximetry 2023-05-08 08:00:00 98 % Commo n [facility] respiratory rate 2023-05-08 08:00:00 16 /min Common [facility] blood pressure systolic 2023-05-08 08:00:00 138 mm[Hg] [facility] blood pressure diastolic 2023-05-08 08:00:00 72 mm[Hg] Common [facility] height 2023-04-01 08:40:00 70 [in_i] Commo n [facility] weight 2023-04-01 08:40:00 174.8 [lb_av] Co mmon [facility] temperature 2023-04-01 08:40:00 97.4 [degF] Com mon [facility] bmi 2023-04-01 08:40:00 25.08 kg/m2 Comm on [facility] oximetry 2023-04-01 08:40:00 98 % Commo n [facility] respiratory rate 2023-04-01 08:40:00 16 /min [facility] blood pressure systolic 2023-04-01 08:40:00 137 mm[Hg] [facility] blood pressure diastolic 2023-04-01 08:40:00 82 mm[Hg] Common [facility] height 2023-03-10 08:20:00 70 [in_i] Commo n [facility] weight 2023-03-10 08:20:00 177.0 [lb_av] Co on [facility] temperature 2023-03-10 08:20:00 97.2 [degF] Com mon [facility] bmi 2023-03-10 08:20:00 25.39 kg/m2 Comm on [facility] oximetry 2023-03-10 08:20:00 97 % Commo n [facility] respiratory rate 2023-03-10 08:20:00 17 /min [facility] blood pressure systolic 2023-03-10 08:20:00 139 mm[Hg] Common [facility] blood pressure diastolic 2023-03-10 08:20:00 92 mm[Hg] Common [facility] height 2022-11-19 16:20:00 70 [in_i] Commo n [facility] weight 2022-11-19 16:20:00 171.8 [lb_av] Co [facility] temperature 2022-11-19 16:20:00 97.3 [degF] Com mon [facility] bmi 2022-11-19 16:20:00 24.65 kg/m2 Comm on [facility] oximetry 2022-11-19 16:20:00 98 % Commo n [facility] respiratory rate 2022-11-19 16:20:00 17 /min Common [facility] blood pressure systolic 2022-11-19 16:20:00 131 mm[Hg] Common [facility] blood pressure diastolic 2022-11-19 16:20:00 75 mm[Hg] Common [facility] height 2022-10-02 09:00:00 70 [in_i] Commo n [facility] weight 2022-10-02 09:00:00 169.8 [lb_av] Co mmon [facility] temperature 2022-10-02 09:00:00 96.9 [degF] Com mon [facility] bmi 2022-10-02 09:00:00 24.36 kg/m2 Comm on [facility] oximetry 2022-10-02 09:00:00 99 % Commo n [facility] respiratory rate 2022-10-02 09:00:00 16 /min Common [facility] blood pressure systolic 2022-10-02 09:00:00 132 mm[Hg] Common [facility] blood pressure diastolic 2022-10-02 09:00:00 76 mm[Hg] Common [facility] height 2022-05-21 09:00:00 70 [in_i] Commo n [facility] weight 2022-05-21 09:00:00 175 [lb_av] Comm on [facility] temperature 2022-05-21 09:00:00 97.5 [degF] Com mon [facility] bmi 2022-05-21 09:00:00 25.11 kg/m2 Comm on [facility] oximetry 2022-05-21 09:00:00 97 % Commo n [facility] respiratory rate 2022-05-21 09:00:00 16 /min Common [facility] blood pressure systolic 2022-05-21 09:00:00 128 mm[Hg] Common [facility] blood pressure diastolic 2022-05-21 09:00:00 80 mm[Hg] Common [facility] height 2022-05-21 09:20:00 70 [in_i] Commo n [facility] weight 2022-05-21 09:20:00 175 [lb_av] Comm on [facility] temperature 2022-05-21 09:20:00 97.5 [degF] Com [facility] bmi 2022-05-21 09:20:00 25.11 kg/m2 Comm on [facility] oximetry 2022-05-21 09:20:00 97 % Commo n [facility] respiratory rate 2022-05-21 09:20:00 16 /min Common [facility] blood pressure systolic 2022-05-21 09:20:00 128 mm[Hg] [facility] blood pressure diastolic 2022-05-21 09:20:00 80 mm[Hg] Common [facility] height 2022-04-16 09:30:00 70 [in_i] Commo n [facility] weight 2022-04-16 09:30:00 175 [lb_av] Comm on [facility] temperature 2022-04-16 09:30:00 98.2 [degF] Com [facility] bmi 2022-04-16 09:30:00 25.11 kg/m2 Comm on [facility] blood pressure systolic 2022-04-16 09:30:00 134 mm[Hg] Common [facility] blood pressure diastolic 2022-04-16 09:30:00 82 mm[Hg] Common [facility] height 2022-03-14 08:00:00 70 [in_i] Commo n [facility] weight 2022-03-14 08:00:00 175 [lb_av] Comm on [facility] temperature 2022-03-14 08:00:00 98.1 [degF] Com [facility] bmi 2022-03-14 08:00:00 25.11 kg/m2 Comm on [facility] blood pressure systolic 2022-03-14 08:00:00 136 mm[Hg] [facility] blood pressure diastolic 2022-03-14 08:00:00 84 mm[Hg] Common [facility] height 2022-02-21 08:20:00 70 [in_i] Commo n [facility] weight 2022-02-21 08:20:00 178.0 [lb_av] Co mmon [facility] temperature 2022-02-21 08:20:00 97.5 [degF] Com mon [facility] bmi 2022-02-21 08:20:00 25.54 kg/m2 Comm on [facility] oximetry 2022-02-21 08:20:00 97 % Commo n [facility] respiratory rate 2022-02-21 08:20:00 17 /min [facility] blood pressure systolic 2022-02-21 08:20:00 135 mm[Hg] [facility] blood pressure diastolic 2022-02-21 08:20:00 72 mm[Hg] Common [facility] height 2022-02-14 13:15:00 70 [in_i] Commo n [facility] weight 2022-02-14 13:15:00 175 [lb_av] Comm on [facility] temperature 2022-02-14 13:15:00 97.2 [degF] Com [facility] bmi 2022-02-14 13:15:00 25.11 kg/m2 Comm on [facility] blood pressure systolic 2022-02-14 13:15:00 138 mm[Hg] Common [facility] blood pressure diastolic 2022-02-14 13:15:00 84 mm[Hg] Common [facility] height 2022-02-01 10:30:00 70 [in_i] Commo n [facility] weight 2022-02-01 10:30:00 175 [lb_av] Comm on [facility] temperature 2022-02-01 10:30:00 97.3 [degF] Com [facility] bmi 2022-02-01 10:30:00 25.11 kg/m2 Comm on [facility] blood pressure systolic 2022-02-01 10:30:00 124 mm[Hg] Common [facility] blood pressure diastolic 2022-02-01 10:30:00 78 mm[Hg] Common [facility] height 2022-01-14 08:15:00 70 [in_i] Commo n [facility] weight 2022-01-14 08:15:00 175 [lb_av] Comm on [facility] temperature 2022-01-14 08:15:00 97.3 [degF] Com mon [facility] bmi 2022-01-14 08:15:00 25.11 kg/m2 Comm on [facility] blood pressure systolic 2022-01-14 08:15:00 136 mm[Hg] Common [facility] blood pressure diastolic 2022-01-14 08:15:00 84 mm[Hg] Common [facility] height 2022-01-09 10:40:00 70 [in_i] Commo n [facility] weight 2022-01-09 10:40:00 180.0 [lb_av] Co mmon [facility] temperature 2022-01-09 10:40:00 97.7 [degF] Com mon [facility] bmi 2022-01-09 10:40:00 25.82 kg/m2 Comm on [facility] oximetry 2022-01-09 10:40:00 98 % Commo n [facility] respiratory rate 2022-01-09 10:40:00 17 /min Common [facility] blood pressure systolic 2022-01-09 10:40:00 121 mm[Hg] Common [facility] blood pressure diastolic 2022-01-09 10:40:00 77 mm[Hg] Common [facility] height 2021-12-24 09:30:00 70 [in_i] Commo n [facility] weight 2021-12-24 09:30:00 178 [lb_av] Comm on [facility] temperature 2021-12-24 09:30:00 97.9 [degF] Com mon [facility] bmi 2021-12-24 09:30:00 25.54 kg/m2 Comm on [facility] blood pressure systolic 2021-12-24 09:30:00 138 mm[Hg] [facility] blood pressure diastolic 2021-12-24 09:30:00 84 mm[Hg] Common [facility] height 2021-11-21 08:10:00 70 [in_i] Commo n [facility] weight 2021-11-21 08:10:00 177.8 [lb_av] Co mmon [facility] temperature 2021-11-21 08:10:00 97.0 [degF] Com mon [facility] bmi 2021-11-21 08:10:00 25.51 kg/m2 Comm on [facility] oximetry 2021-11-21 08:10:00 98 % Commo n [facility] respiratory rate 2021-11-21 08:10:00 17 /min [facility] blood pressure systolic 2021-11-21 08:10:00 131 mm[Hg] [facility] blood pressure diastolic 2021-11-21 08:10:00 70 mm[Hg] Common [facility] height 2021-09-27 08:30:00 70 [in_i] Commo n [facility] weight 2021-09-27 08:30:00 173 [lb_av] Comm on [facility] temperature 2021-09-27 08:30:00 96.3 [degF] Com [facility] bmi 2021-09-27 08:30:00 24.82 kg/m2 Comm on [facility] blood pressure systolic 2021-09-27 08:30:00 144 mm[Hg] Common [facility] blood pressure diastolic 2021-09-27 08:30:00 82 mm[Hg] Common [facility] height 2021-09-14 08:10:00 70 [in_i] Commo n [facility] weight 2021-09-14 08:10:00 175.6 [lb_av] Co on [facility] temperature 2021-09-14 08:10:00 97.5 [degF] Com mon [facility] bmi 2021-09-14 08:10:00 25.19 kg/m2 Comm on [facility] oximetry 2021-09-14 08:10:00 96 % Commo n [facility] respiratory rate 2021-09-14 08:10:00 17 /min Common [facility] blood pressure systolic 2021-09-14 08:10:00 132 mm[Hg] Common [facility] blood pressure diastolic 2021-09-14 08:10:00 76 mm[Hg] Common [facility] height 2021-08-22 08:00:00 70 [in_i] Commo n [facility] weight 2021-08-22 08:00:00 174.9 [lb_av] Co on [facility] temperature 2021-08-22 08:00:00 97.8 [degF] Com mon [facility] bmi 2021-08-22 08:00:00 25.09 kg/m2 Comm on [facility] oximetry 2021-08-22 08:00:00 95 % Commo n [facility] respiratory rate 2021-08-22 08:00:00 18 /min [facility] blood pressure systolic 2021-08-22 08:00:00 140 mm[Hg] Common [facility] blood pressure diastolic 2021-08-22 08:00:00 88 mm[Hg] Common [facility] height 2021-08-10 09:20:00 70 [in_i] Commo n [facility] weight 2021-08-10 09:20:00 185 [lb_av] Comm on [facility] bmi 2021-08-10 09:20:00 26.54 kg/m2 Comm on [facility] height 2021-06-14 08:00:00 70 [in_i] Commo n [facility] weight 2021-06-14 08:00:00 185.4 [lb_av] Co mmon [facility] temperature 2021-06-14 08:00:00 97.3 [degF] Com [facility] bmi 2021-06-14 08:00:00 26.6 kg/m2 Commo n [facility] oximetry 2021-06-14 08:00:00 97 % Commo n [facility] respiratory rate 2021-06-14 08:00:00 17 /min Common [facility] blood pressure systolic 2021-06-14 08:00:00 132 mm[Hg] Common [facility] blood pressure diastolic 2021-06-14 08:00:00 67 mm[Hg] Common [facility] height 2021-06-14 13:15:00 70 [in_i] Commo n [facility] weight 2021-06-14 13:15:00 185 [lb_av] Comm on [facility] temperature 2021-06-14 13:15:00 97.8 [degF] Com mon [facility] bmi 2021-06-14 13:15:00 26.54 kg/m2 Comm on [facility] blood pressure systolic 2021-06-14 13:15:00 140 mm[Hg] Common [facility] blood pressure diastolic 2021-06-14 13:15:00 84 mm[Hg] Common [facility] height 2021-05-15 08:00:00 70 [in_i] Commo n [facility] weight 2021-05-15 08:00:00 179.7 [lb_av] Co mmon [facility] temperature 2021-05-15 08:00:00 97.4 [degF] Com mon [facility] bmi 2021-05-15 08:00:00 25.78 kg/m2 Comm on [facility] oximetry 2021-05-15 08:00:00 99 % Commo n [facility] respiratory rate 2021-05-15 08:00:00 18 /min [facility] blood pressure systolic 2021-05-15 08:00:00 135 mm[Hg] [facility] blood pressure diastolic 2021-05-15 08:00:00 72 mm[Hg] Common [facility] height 2021-05-15 13:00:00 70 [in_i] Commo n [facility] weight 2021-05-15 13:00:00 170 [lb_av] Comm on [facility] temperature 2021-05-15 13:00:00 97.0 [degF] Com [facility] bmi 2021-05-15 13:00:00 24.39 kg/m2 Comm on [facility] blood pressure systolic 2021-05-15 13:00:00 136 mm[Hg] Common [facility] blood pressure diastolic 2021-05-15 13:00:00 84 mm[Hg] Common [facility] height 2021-04-10 08:00:00 70 [in_i] Commo n [facility] weight 2021-04-10 08:00:00 170 [lb_av] Comm on [facility] temperature 2021-04-10 08:00:00 97.2 [degF] Com [facility] bmi 2021-04-10 08:00:00 24.39 kg/m2 Comm on [facility] blood pressure systolic 2021-04-10 08:00:00 134 mm[Hg] Common [facility] blood pressure diastolic 2021-04-10 08:00:00 84 mm[Hg] Common [facility] height 2021-03-12 08:15:00 70 [in_i] Commo n [facility] weight 2021-03-12 08:15:00 166 [lb_av] Comm on [facility] bmi 2021-03-12 08:15:00 23.82 kg/m2 Comm on [facility] blood pressure systolic 2021-03-12 08:15:00 170 mm[Hg] Common [facility] blood pressure diastolic 2021-03-12 08:15:00 120 mm[Hg] Common [facility] height 2020-11-16 09:00:00 70 [in_i] Commo n [facility] weight 2020-11-16 09:00:00 177.8 [lb_av] Co mmon [facility] temperature 2020-11-16 09:00:00 97.6 [degF] Com mon [facility] bmi 2020-11-16 09:00:00 25.51 kg/m2 Comm on [facility] oximetry 2020-11-16 09:00:00 99 % Commo n [facility] respiratory rate 2020-11-16 09:00:00 18 /min [facility] blood pressure systolic 2020-11-16 09:00:00 132 mm[Hg] Common [facility] blood pressure diastolic 2020-11-16 09:00:00 80 mm[Hg] [facility] Encounters Start Date/Time End Date/Time Encounter Type Admission Type Attending [facility] Care Facility Care Department Encounter ID Source 2024-05-25 10:24:01 Outpatient Karel Hill [facility] [id number] [place] [facility] 2024-05-25 10:09:00 Outpatient Hill, [facility]arel [facility] [id number] [facility] 2024-05-10 10:21:00 [facility] [id number] [facility] 2024-04-29 10:47:00 [facility] [id number] [facility] 2024-01-26 10:26:00 [facility] [id number] [facility] 2023-12-26 09:01:00 [facility] [id number] [facility] 2023-10-07 15:23:00 Outpatient Hill, Karel [facility] [id number] [facility] 2023-10-06 09:52:00 [facility] [id number] [facility] 2023-07-25 10:40:00 [facility] [id number] [facility] 2023-07-02 08:55:01 [facility] [id number] [facility] 2023-05-08 08:00:00 Outpatient Hill, Karel [facility] ST[facility] [id number] [facility] 2023-05-06 09:40:01 Outpatient Hill, Karel [facility] [id number] [facility] 2023-05-05 08:15:00 Outpatient Hill, Karel [facility] [id number] [facility] 2023-03-07 11:03:00 Outpatient Hill, Karel [facility] [id number] [facility] 2023-01-24 08:43:00 Outpatient Hill, Karel [facility] [id number] [facility] 2022-12-12 09:29:00 Outpatient Hill, Karel [facility] [id number] [facility] 2022-12-06 10:07:00 Outpatient Hill, Karel [facility] [id number] [facility] 2022-11-19 10:29:00 Outpatient Hill, Karel [facility] [id number] [facility] 2022-11-01 10:47:00 Outpatient Hill, Karel [facility] [id number] [facility] 2022-09-18 11:52:02 Outpatient Hill, [facility] ST[facility] [id number] [facility] 2022-09-16 09:20:02 Outpatient Hill, [facility] ST[facility] [id number] [facility] 2022-05-15 08:42:01 Outpatient Hill, [facility] [id number] [facility] 2022-04-16 09:36:02 Outpatient Hill, [facility] ST[facility] [id number] [facility] 2022-04-15 13:41:02 Outpatient Hill, [facility] ST[facility] [id number] [facility] 2022-03-14 08:10:02 Outpatient Hill, [facility] STLC [id number] [facility] 2022-02-19 10:12:01 Outpatient Hill, [facility] ST[facility] [id number] [facility] 2022-01-24 14:13:02 Outpatient Hill, [facility] STL[facility]C STLC [id number] [facility] 2022-01-15 09:06:01 Outpatient [facility] [id number] [facility] 2021-12-21 09:23:01 Outpatient [facility] [id number] [facility] 2021-11-20 12:02:00 Outpatient [facility] [id number] [facility] 2021-10-05 08:42:00 Outpatient [facility], [facility] [id number] [facility] 2021-09-12 10:00:20 Outpatient [facility], [facility] [id number] [facility] 2021-06-13 09:22:02 Outpatient [facility] [id number] [facility] 2021-05-23 14:38:41 Outpatient [facility] [id number] [facility] 2021-05-23 14:30:24 Outpatient [facility] [id number] [facility] 2021-05-23 14:25:50 Outpatient Ihll, Karel [facility] ST[facility] [id number] [facility] 2021-05-23 14:24:20 Outpatient Hill, Karel [facility] ST[facility] [id number] [facility] 2021-05-23 13:49:29 Outpatient Hill, Karel [facility] ST[facility] [id number] [facility] 2021-05-23 13:37:10 Outpatient Hill, Karel [facility] ST[facility] [id number] [facility] 2021-05-23 13:29:57 Outpatient Hill, Karel STLMLC STLMLC [id number] [facility] 2021-05-23 13:29:04 Outpatient Karel Hill STL[facility]C STLMLC [id number] [facility] 2021-05-23 13:28:51 Outpatient STLMLC STL[facility]C [id number] [facility] 2021-05-23 13:24:34 Outpatient STLMLC STLMLC [id number] [facility] 2021-05-23 13:12:48 Outpatient STLMLC STLMLC [id number] [facility] 2021-05-23 12:53:18 Outpatient Edin Bell STLMLC STLMLC [id number] [facility] 2021-05-23 12:50:58 Outpatient Bell, Edin STLMLC STLMLC [id number] [facility] 2024-08-24 00:00:00 2024-08-24 00:00:00 (TEL) STLMLC STLMLC [id number] [facility] 2024-08-16 00:00:00 2024-08-16 00:00:00 (TEL) STLMLC STLMLC [id number] [facility] 2024-06-23 00:00:00 2024-06-23 00:00:00 (TEL) STLMLC STLMLC [id number] [facility] 2024-05-12 00:00:00 2024-05-12 00:00:00 OFFICE VISIT ESTAB PT LEVEL 4 STLMLC STLMLC [id number] [facility] 2024-05-12 00:00:00 2024-05-12 00:00:00 SUB ANNUAL [facility] WELLNESS VISIT STLMLC STLMLC [id number] [facility] 2024-04-27 00:00:00 2024-04-27 00:00:00 (TEL) STLMLC STLMLC [id number] [facility] 2024-04-20 00:00:00 2024-04-20 00:00:00 (TEL) STLMLC STLMLC [id number] [facility] 2024-03-09 00:00:00 2024-03-09 00:00:00 (TEL) STLMLC STLMLC [id number] [facility] 2024-02-17 00:00:00 2024-02-17 00:00:00 (TEL) STLMLC STLMLC [id number] [facility] 2024-01-28 00:00:00 2024-01-28 00:00:00 (TEL) STLMLC STLMLC [id number] [facility] 2024-01-27 00:00:00 2024-01-27 00:00:00 OFFICE VISIT ESTAB PT LEVEL 4 STLMLC STLMLC [id number] [facility] 2023-12-26 00:00:00 2023-12-26 00:00:00 OFFICE VISIT ESTAB PT LEVEL 3 STLMLC STLMLC [id number] [facility] 2023-12-25 00:00:00 2023-12-25 00:00:00 (TEL) STLMLC STLMLC [id number] [facility] 2023-12-04 00:00:00 2023-12-04 00:00:00 (TEL) STLMLC STLMLC [id number] [facility] 2023-12-04 00:00:00 2023-12-04 00:00:00 (TEL) STLMLC STLMLC [id number] [facility] 2023-11-06 00:00:00 2023-11-06 00:00:00 (TEL) STLMLC STLMLC [id number] [facility] 2023-10-31 00:00:00 2023-10-31 00:00:00 (TEL) STLMLC STLMLC [id number] [facility] 2023-10-31 00:00:00 2023-10-31 00:00:00 (TEL) STLMLC STLMLC [id number] [facility] 2023-10-23 00:00:00 2023-10-23 00:00:00 (TEL) STLMLC STLMLC [id number] [facility] 2023-10-08 00:00:00 2023-10-08 00:00:00 OFFICE VISIT ESTAB PT LEVEL 4 STLMLC STLMLC [id number] [facility] 2023-10-06 00:00:00 2023-10-06 00:00:00 (TEL) STLMLC STLMLC [id number] [facility] 2023-10-03 00:00:00 2023-10-03 00:00:00 (TEL) STLMLC STLMLC [id number] [facility] 2023-09-23 00:00:00 2023-09-23 00:00:00 (TEL) STLMLC STLMLC [id number] [facility] 2023-09-03 00:00:00 2023-09-03 00:00:00 (TEL) STLMLC STLMLC [id number] [facility] 2023-09-02 00:00:00 2023-09-02 00:00:00 (TEL) STLMLC STLMLC [id number] [facility] 2023-07-28 00:00:00 2023-07-28 00:00:00 OFFICE VISIT ESTAB PT LEVEL 4 STLMLC STLMLC [id number] [facility] 2023-07-02 00:00:00 2023-07-02 00:00:00 (TEL) STLMLC STLMLC [id number] [facility] 2023-07-01 00:00:00 2023-07-01 00:00:00 (TEL) STLMLC STLMLC [id number] [facility] 2023-06-27 00:00:00 2023-06-27 00:00:00 (TEL) STLMLC STLMLC [id number] [facility] 2023-05-14 00:00:00 2023-05-14 00:00:00 (TEL) STLMLC STLMLC [id number] [facility] 2023-05-14 00:00:00 2023-05-14 00:00:00 (TEL) STLMLC STLMLC [id number] [facility] 2023-05-08 00:00:00 2023-05-08 00:00:00 OFFICE VISIT ESTAB PT LEVEL 4 STLMLC STLMLC [id number] [facility] 2023-05-08 00:00:00 2023-05-08 00:00:00 SUB ANNUAL [facility] WELLNESS VISIT STLMLC STLMLC [id number] [facility] 2023-05-05 00:00:00 2023-05-05 00:00:00 (TEL) STLMLC STLMLC [id number] [facility] 2023-04-01 00:00:00 2023-04-01 00:00:00 OFFICE VISIT ESTAB PT LEVEL 4 STLMLC STLMLC [id number] [facility] 2023-03-24 00:00:00 2023-03-24 00:00:00 (TEL) STLMLC STLMLC [id number] [facility] 2023-03-18 00:00:00 2023-03-18 00:00:00 (TEL) STLMLC STLMLC [id number] [facility] 2023-03-11 00:00:00 2023-03-11 00:00:00 (TEL) STLMLC STLMLC [id number] [facility] 2023-03-10 00:00:00 2023-03-10 00:00:00 OFFICE VISIT ESTAB PT LEVEL 4 STLMLC STLMLC [id number] [facility] 2023-03-07 00:00:00 2023-03-07 00:00:00 (TEL) STLMLC STLMLC [id number] [facility] 2023-02-21 00:00:00 2023-02-21 00:00:00 (TEL) STLMLC STLMLC [id number] [facility] 2023-02-19 00:00:00 2023-02-19 00:00:00 (TEL) STLMLC STLMLC [id number] [facility] 2023-02-17 00:00:00 2023-02-17 00:00:00 (TEL) STLMLC STLMLC [id number] [facility] 2023-02-11 00:00:00 2023-02-11 00:00:00 Outpatient DMG DMG [id number] [facility] 2023-02-11 00:00:00 2023-02-11 00:00:00 Outpatient DMG DMG [id number] [facility] 2023-01-08 00:00:00 2023-01-08 00:00:00 (TEL) STLMLC STLMLC [id number] [facility] 2022-12-13 00:00:00 2022-12-13 00:00:00 (TEL) STLMLC STLMLC [id number] [facility] 2022-12-12 00:00:00 2022-12-12 00:00:00 (TEL) STLMLC STLMLC [id number] [facility] 2022-12-10 00:00:00 2022-12-10 00:00:00 (TEL) STLMLC STLMLC [id number] [facility] 2022-12-06 00:00:00 2022-12-06 00:00:00 (TEL) STLMLC STLMLC [id number] [facility] 2022-11-26 00:00:00 2022-11-26 00:00:00 (TEL) STLMLC STLMLC [id number] [facility] 2022-11-25 00:00:00 2022-11-25 00:00:00 (TEL) STLMLC STLMLC [id number] [facility] 2022-11-19 00:00:00 2022-11-19 00:00:00 (TEL) STLMLC STLMLC [id number] [facility] 2022-11-19 00:00:00 2022-11-19 00:00:00 OFFICE VISIT ESTAB PT LEVEL 3 STLMLC STLMLC [id number] [facility] 2022-11-01 00:00:00 2022-11-01 00:00:00 (TEL) STLMLC STLMLC [id number] [facility] 2022-10-02 00:00:00 2022-10-02 00:00:00 OFFICE VISIT ESTAB PT LEVEL 4 STLMLC STLMLC [id number] [facility] 2022-09-18 00:00:00 2022-09-18 00:00:00 (TEL) STLMLC STLMLC [id number] [facility] 2022-07-01 00:00:00 2022-07-01 00:00:00 (TEL) STLMLC STLMLC [id number] [facility] 2022-05-21 00:00:00 2022-05-21 00:00:00 OFFICE VISIT ESTAB PT LEVEL 4 STLMLC STLMLC [id number] [facility] 2022-05-21 00:00:00 2022-05-21 00:00:00 SUB ANNUAL [facility] WELLNESS VISIT STLMLC STLMLC [id number] [facility] 2022-04-25 00:00:00 2022-04-25 00:00:00 (TEL) STLMLC STLMLC [id number] [facility] 2022-04-16 00:00:00 2022-04-16 00:00:00 OFFICE VISIT ESTAB PT LEVEL 4 STLMLC STLMLC [id number] [facility] 2022-03-27 00:00:00 2022-03-27 00:00:00 (TEL) STLMLC STLMLC [id number] [facility] 2022-03-27 00:00:00 2022-03-27 00:00:00 (TEL) STLMLC STLMLC [id number] [facility] 2022 00:00:00 2022 00:00:00 (TEL) STLMLC STLMLC [id number] [facility] 2022-03-14 00:00:00 2022-03-14 00:00:00 OFFICE VISIT ESTAB PT LEVEL 4 STLMLC STLMLC [id number] [facility] 2022-03-08 00:00:00 2022-03-08 00:00:00 (TEL) STLMLC STLMLC [id number] [facility] 2022-02-21 00:00:00 2022-02-21 00:00:00 OFFICE VISIT ESTAB PT LEVEL 4 STLMLC STLMLC [id number] [facility] 2022-02-20 00:00:00 2022-02-20 00:00:00 (TEL) STLMLC STLMLC [id number] [facility] 2022-02-14 00:00:00 2022-02-14 00:00:00 (TEL) STLMLC STLMLC [id number] [facility] 2022-02-14 00:00:00 2022-02-14 00:00:00 OFFICE VISIT ESTAB PT LEVEL 4 STLMLC STLMLC [id number] [facility] 2022-02-01 00:00:00 2022-02-01 00:00:00 (TEL) STLMLC STLMLC [id number] [facility] 2022-02-01 00:00:00 2022-02-01 00:00:00 OFFICE VISIT ESTAB PT LEVEL 4 STLMLC STLMLC [id number] [facility] 2022-01-31 00:00:00 2022-01-31 00:00:00 (TEL) STLMLC STLMLC [id number] [facility] 2022-01-30 00:00:00 2022-01-30 00:00:00 (TEL) STLMLC STLMLC [id number] [facility] 2022-01-24 00:00:00 2022-01-24 00:00:00 (TEL) STLMLC STLMLC [id number] [facility] 2022-01-14 00:00:00 2022-01-14 00:00:00 OFFICE VISIT ESTAB PT LEVEL 4 STLMLC STLMLC [id number] [facility] 2022-01-10 00:00:00 2022-01-10 00:00:00 (TEL) STLMLC STLMLC [id number] [facility] 2022-01-09 00:00:00 2022-01-09 00:00:00 OFFICE VISIT EST PT LEVEL 3 STLMLC STLMLC [id number] [facility] 2022-01-08 00:00:00 2022-01-08 00:00:00 (TEL) STLMLC STLMLC [id number] [facility] 2022-01-04 00:00:00 2022-01-04 00:00:00 (TEL) STLMLC STLMLC [id number] [facility] 2021-12-24 00:00:00 2021-12-24 00:00:00 OFFICE VISIT ESTAB PT LEVEL 4 STLMLC STLMLC [id number] [facility] 2021-12-03 00:00:00 2021-12-03 00:00:00 (TEL) STLMLC STLMLC [id number] [facility] 2021-11-21 00:00:00 2021-11-21 00:00:00 OFFICE VISIT ESTAB PT LEVEL 4 STLMLC STLMLC [id number] [facility] 2021-11-20 00:00:00 2021-11-20 00:00:00 (TEL) STLMLC STLMLC [id number] [facility] 2021-11-19 00:00:00 2021-11-19 00:00:00 (TEL) STLMLC STLMLC [id number] [facility] 2021-11-09 07:18:00 2021-11-09 07:18:00 Outpatient DMG [facility] [id number] [facility] 2021-11-09 00:00:00 2021-11-09 00:00:00 Outpatient DMG [facility] [id number] [facility] 2021-10-05 00:00:00 2021-10-05 00:00:00 (TEL) STLMLC STLMLC [id number] [facility] 2021-09-28 00:00:00 2021-09-28 00:00:00 (TEL) STLMLC STLMLC [id number] [facility] 2021-09-28 00:00:00 2021-09-28 00:00:00 (TEL) STLMLC STLMLC [id number] [facility] 2021-09-27 00:00:00 2021-09-27 00:00:00 OFFICE VISIT ESTAB PT LEVEL 4 STLMLC STLMLC [id number] [facility] 2021-09-17 00:00:00 2021-09-17 00:00:00 (TEL) STLMLC STLMLC [id number] [facility] 2021-09-14 00:00:00 2021-09-14 00:00:00 OFFICE VISIT EST PT LEVEL 3 STLMLC STLMLC [id number] [facility] 2021-08-22 00:00:00 2021-08-22 00:00:00 OFFICE VISIT ESTAB PT LEVEL 4 STLMLC STLMLC [id number] [facility] 2021-08-10 00:00:00 2021-08-10 00:00:00 OL DIG E/M SVC 11-20 MIN STLMLC STLMLC [id number] [facility] 2021-08-08 00:00:00 2021-08-08 00:00:00 (TEL) STLMLC STLMLC [id number] [facility] 2021-07-17 00:00:00 2021-07-17 00:00:00 (TEL) STLMLC STLMLC [id number] [facility] 2021-07-17 00:00:00 2021-07-17 00:00:00 (TEL) STLMLC STLMLC [id number] [facility] 2021-06-27 09:01:00 2021-06-27 09:01:00 Outpatient DMG [facility] [id number] [facility] 2021-06-18 00:00:00 2021-06-18 00:00:00 (TEL) STLMLC STLMLC [id number] [facility] 2021-06-14 00:00:00 2021-06-14 00:00:00 OFFICE VISIT EST PT LEVEL 3 STLMLC STLMLC [id number] [facility] 2021-06-14 00:00:00 2021-06-14 00:00:00 OFFICE VISIT ESTAB PT LEVEL 4 STLMLC STLMLC [id number] [facility] 2021-06-13 00:00:00 2021-06-13 00:00:00 (TEL) STLMLC STLMLC [id number] [facility] 2021-06-13 00:00:00 2021-06-13 00:00:00 (TEL) STLMLC STLMLC [id number] [facility] 2021-06-08 00:00:00 2021-06-08 00:00:00 (TEL) STLMLC STLMLC [id number] [facility] 2021-06-04 00:00:00 2021-06-04 00:00:00 (TEL) STLMLC STLMLC [id number] [facility] 2021-05-17 00:00:00 2021-05-17 00:00:00 (TEL) STLMLC STLMLC [id number] [facility] 2021-05-15 00:00:00 2021-05-15 00:00:00 PREV VISIT EST AGE 65 & OVER STLMLC STLMLC [id number] [facility] 2021-05-15 00:00:00 2021-05-15 00:00:00 OFFICE VISIT ESTAB PT LEVEL 4 STLMLC STLMLC [id number] [facility] 2021-05-01 00:00:00 2021-05-01 00:00:00 (TEL) STLMLC STLMLC [id number] [facility] 2021-04-10 00:00:00 2021-04-10 00:00:00 OFFICE VISIT ESTAB PT LEVEL 4 STLMLC STLMLC [id number] [facility] 2021-04-09 00:00:00 2021-04-09 00:00:00 (TEL) STLMLC STLMLC [id number] [facility] 2021-04-03 00:00:00 2021-04-03 00:00:00 (TEL) STLMLC STLMLC [id number] [facility] 2021-04-02 00:00:00 2021-04-02 00:00:00 (TEL) STLMLC STLMLC [id number] [facility] 2021-03-14 00:00:00 2021-03-14 00:00:00 (TEL) STLMLC STLMLC [id number] [facility] 2021-03-14 00:00:00 2021-03-14 00:00:00 (TEL) STLMLC STLMLC [id number] [facility] 2021-03-12 00:00:00 2021-03-12 00:00:00 OFFICE VISIT ESTAB PT LEVEL 4 [facility] STL[facility]C [id number] [facility] 2021-02-22 08:03:00 2021-02-22 08:03:00 Outpatient DMG EDUARD [id number] [facility] 2021-01-23 00:00:00 2021-01-23 00:00:00 Outpatient STLMLC STLMLC [id number] [facility] 2021-01-22 00:00:00 2021-01-22 00:00:00 Outpatient STLMLC STLMLC [id number] [facility] 2021-01-04 00:00:00 2021-01-04 00:00:00 Outpatient STLMLC STLMLC [id number] [facility] 2021-01-02 00:00:00 2021-01-02 00:00:00 Outpatient STLMLC STLMLC [id number] [facility] 2020-12-28 00:00:00 2020-12-28 00:00:00 Outpatient STLMLC STLMLC [id number] [facility] 2020-12-27 00:00:00 2020-12-27 00:00:00 Outpatient STLMLC STLMLC [id number] [facility] 2020-12-19 00:00:00 2020-12-19 00:00:00 Outpatient STLMLC STLMLC [id number] [facility] 2020-12-19 00:00:00 2020-12-19 00:00:00 Outpatient STLMLC STLMLC [id number] [facility] 2020-12-06 00:00:00 2020-12-06 00:00:00 Outpatient STLMLC STLMLC [id number] [facility] 2020-12-04 00:00:00 2020-12-04 00:00:00 Outpatient STLMLC STLMLC [id number] [facility] 2020-12-04 00:00:00 2020-12-04 00:00:00 Outpatient [facility] [id number] [facility] 2020-12-04 00:00:00 2020-12-04 00:00:00 Outpatient [facility] [id number] [facility] 2020-11-27 00:00:00 2020-11-27 00:00:00 Outpatient [facility] [id number] [facility] 2020-11-23 00:00:00 2020-11-23 00:00:00 [facility] [id number] 2020-11-16 00:00:00 2020-11-16 00:00:00 OFFICE VISIT NEW PT LEVEL [address] [facility] [id number] [facility] Results Test Description Test Time Test Comments Results Result Co mments Source COMPREHENSIVE METABOLIC [id number] 00:00:00* Test Item Value Reference Range Interpretation Comme nts NUCLEATED RBCS (test code = 89765-0) 0.0 /100 WBC'S See_Comment [Automated message] The system which generated this result transmitted reference range: 0.0 /100 WBC'S. The reference range was not used to interpret this result as normal/abnormal. ABSOLUTE EOSINOPHILS (test code = 06568-6) 0.18 K/UL See_Comment [Automated message] The system which generated this result transmitted reference range: 0.00-0.50 K/UL. The reference range was not used to interpret this result as normal/abnormal. ABSOLUTE LYMPHOCYTES (test code = 61321-0) 2.20 K/UL See_Comment [Automated message] The system which generated this result transmitted reference range: 1.00-4.00 K/UL. The reference range was not used to interpret this result as normal/abnormal. ABSOLUTE MONOCYTES (test code = 50644-3) 0.69 K/UL See_Comment [Automated message] The system which generated this result transmitted reference range: 0.20-1.00 K/UL. The reference range was not used to interpret this result as normal/abnormal. ABSOLUTE NEUTROPHILS (test code = 02506-7) 2.59 K/UL See_Comment [Automated message] The system which generated this result transmitted reference range: 1.50-7.50 K/UL. The reference range was not used to interpret this result as normal/abnormal. BASOPHILS (test code = 47369-1) 0.4 % EOSINOPHILS (test code = 90645-1) 3.2 % HEMATOCRIT (test code = 05678-2) 42.4 % See_Comment [Automated messa ge] The system which generated this result transmitted reference range: 40.0-51.0 %. The reference range was not used to interpret this result as normal/abnormal. HEMOGLOBIN (test code = 718-7) 14.6 G/DL See_Comment [Automated messa ge] The system which generated this result transmitted reference range: 13.5-17.0 G/DL. The reference range was not used to interpret this result as normal/abnormal. LYMPHOCYTES (test code = 73457-9) 38.7 % MCH (test code = 88423-4) 31.8 PG See_Comment [Automated messa ge] The system which generated this result transmitted reference range: 25.0-33.0 PG. The reference range was not used to interpret this result as normal/abnormal. MCHC (test code = 87108-5) 34.4 G/DL See_Comment [Automated messa ge] The system which generated this result transmitted reference range: 31.0-36.0 G/DL. The reference range was not used to interpret this result as normal/abnormal. MCV (test code = 99428-5) 92.4 fL See_Comment [Automated messa ge] The system which generated this result transmitted reference range: 80.0-99.0 fL. The reference range was not used to interpret this result as normal/abnormal. MONOCYTES (test code = 20588-6) 12.1 % NEUTROPHILS (test code = 36293-7) 45.4 % PLATELET COUNT (test code = 81574-0) 290 K/UL See_Comment [Automated messa ge] The system which generated this result transmitted reference range: 130-400 K/UL. The reference range was not used to interpret this result as normal/abnormal. RBC (test code = 01953-5) 4.59 M/UL See_Comment [Automated messa ge] The system which generated this result transmitted reference range: 4.50-6.10 M/UL. The reference range was not used to interpret this result as normal/abnormal. RDW (test code = 37095-5) 11.5 % See_Comment [Automated messa ge] The system which generated this result transmitted reference range: 11.5-15.0 %. The reference range was not used to interpret this result as normal/abnormal. WBC (test code = 58697-0) 5.7 K/UL See_Comment [Automated messa ge] The system which generated this result transmitted reference range: 3.5-11.0 K/UL. The reference range was not used to interpret this result as normal/abnormal. CALC LDL CHOL (test code = 84099-4) 188 MG/DL See_Comment H [Automated messa ge] The system which generated this result transmitted reference range: <100 MG/DL. The reference range was not used to interpret this result as normal/abnormal. CHOLESTEROL (test code = 2093-3) 283 MG/DL See_Comment H [Automated messa ge] The system which generated this result transmitted reference range: <200 MG/DL. The reference range was not used to interpret this result as normal/abnormal. HDL CHOLESTEROL (test code = 2085-9) 53 MG/DL See_Comment [Automated messa ge] The system which generated this result transmitted reference range: >39 MG/DL. The reference range was not used to interpret this result as normal/abnormal. RISK RATIO LDL/HDL (test code = 99488-7) 3.55 RATIO See_Comment H [Automated message] The system which generated this result transmitted reference range: <3.55 RATIO. The reference range was not used to interpret this result as normal/abnormal. TRIGLYCERIDES (test code = 2571-8) 228 MG/DL See_Comment H [Automated messa ge] The system which generated this result transmitted reference range: <150 MG/DL. The reference range was not used to interpret this result as normal/abnormal. ALBUMIN (test code = 1751-7) 4.1 G/DL See_Comment [Automated messa ge] The system which generated this result transmitted reference range: 3.5-5.2 G/DL. The reference range was not used to interpret this result as normal/abnormal. ALKALINE PHOSPHATASE (test code = 6768-6) 77 U/L See_Comment [Automated message] The system which generated this result transmitted reference range: 40-125 U/L. The reference range was not used to interpret this result as normal/abnormal. BILIRUBIN, TOTAL (test code = 1975-2) 0.5 MG/DL See_Comment [Automated messa ge] The system which generated this result transmitted reference range: <=1.2 MG/DL. The reference range was not used to interpret this result as normal/abnormal. BUN (test code = 3094-0) 14 MG/DL See_Comment [Automated messa ge] The system which generated this result transmitted reference range: 8-23 MG/DL. The reference range was not used to interpret this result as normal/abnormal. CALCIUM (test code = 99498-4) 9.9 MG/DL See_Comment [Automated messa ge] The system which generated this result transmitted reference range: 8.5-10.5 MG/DL. The reference range was not used to interpret this result as normal/abnormal. CALC A/G RATIO (test code = 1759-0) 1.6 RATIO See_Comment [Automated messa ge] The system which generated this result transmitted reference range: 1.0-2.6 RATIO. The reference range was not used to interpret this result as normal/abnormal. CALC BUN/CREAT (test code = 3097-3) 14 RATIO See_Comment [Automated messa ge] The system which generated this result transmitted reference range: 6-28 RATIO. The reference range was not used to interpret this result as normal/abnormal. CALC GLOBULIN (test code = 87005-0) 2.6 G/DL See_Comment [Automated messa ge] The system which generated this result transmitted reference range: 1.9-3.7 G/DL. The reference range was not used to interpret this result as normal/abnormal. CARBON DIOXIDE (test code = 1963-8) 30 MEQ/L See_Comment [Automated messa ge] The system which generated this result transmitted reference range: 19-31 MEQ/L. The reference range was not used to interpret this result as normal/abnormal. CHLORIDE (test code = 2075-0) 101 MEQ/L See_Comment [Automated messa ge] The system which generated this result transmitted reference range: 95-107 MEQ/L. The reference range was not used to interpret this result as normal/abnormal. CREATININE (test code = 2160-0) 1.03 MG/DL See_Comment [Automated messa ge] The system which generated this result transmitted reference range: 0.80-1.40 MG/DL. The reference range was not used to interpret this result as normal/abnormal. eGFR (2020 CKD-EPI) (test code = 62867-8) 79 ML/MIN/1.73 See_Comment [Automated message] The system which generated this result transmitted reference range: >60 ML/MIN/1.73. The reference range was not used to interpret this result as normal/abnormal. GLUCOSE (test code = 1558-6) 111 MG/DL See_Comment H [Automated messa ge] The system which generated this result transmitted reference range: 70-99 MG/DL. The reference range was not used to interpret this result as normal/abnormal. POTASSIUM (test code = 2823-3) 4.5 MEQ/L See_Comment [Automated messa ge] The system which generated this result transmitted reference range: 3.5-5.4 MEQ/L. The reference range was not used to interpret this result as normal/abnormal. PROTEIN, TOTAL (test code = 2885-2) 6.7 G/DL See_Comment [Automated messa ge] The system which generated this result transmitted reference range: 6.1-8.3 G/DL. The reference range was not used to interpret this result as normal/abnormal. AST (test code = 1920-8) 18 U/L See_Comment [Automated messa ge] The system which generated this result transmitted reference range: 9-50 U/L. The reference range was not used to interpret this result as normal/abnormal. ALT (test code = 1742-6) 14 U/L See_Comment [Automated messa ge] The system which generated this result transmitted reference range: 5-50 U/L. The reference range was not used to interpret this result as normal/abnormal. SODIUM (test code = 2951-2) 140 MEQ/L See_Comment [Automated messa ge] The system which generated this result transmitted reference range: 133-146 MEQ/L. The reference range was not used to interpret this result as normal/abnormal.
--- NOTE | 2024-09-18 09:54 | EDPHYS ---
Physician Documentation [facility] Name: Rupert Augusitn Age: 69 yrs Sex: Male : 1955 Arrival Date: 09/18/2024 Time: 09:41 Bed IW1 Private MD: ED Physician Bib Villatoro HPI: 09/18 09:54 This 69 yrs old Male presents to ER via Ambulatory with complaints of Eye dr5 Problem, Rash. 10:30 Patient is a 69-year-old male with history of hypertension hyperlipidemia coming in dr5 with rash to bilateral forearms since . Patient reports he tried to get into his doctor's office but an appointment was not available. Patient is requesting steroids.. Historical: - Allergies: 09:49 No Known Allergies; iw - PMHx: 09:49 Hypertensive disorder; iw 09:49 Hypercholesterolemia; iw ROS: 10:49 Constitutional: as per hpi dr5 10:49 Constitutional: as per hpi dr5 Exam: 10:55 Constitutional: As per HPI dr5 10:55 Head/face: Exam is negative for acute changes, dr5 10:55 Eyes: Exam is negative for acute changes, 10:55 ENT: Exam is negative for acute changes, 10:55 Chest/axilla: Exam negative for acute changes, 10:55 Cardiovascular: Exam negative for acute changes, 10:55 Respiratory: Exam negative for acute changes, 10:55 Abdomen/GI: Exam negative for acute changes, 10:55 Back: Exam negative for acute changes, 10:55 Musculoskeletal/extremity: Exam is negative for acute changes, 10:55 Skin: rash a moderate rash is noted, rash can be described as pustular, raised, urticarial, contact dermatitis, on the palmar aspect of left and right forearm, Vital Signs: 09:48 BP 160 / 98; Pulse 81; Resp 16; Pulse Ox 100% on R/A; iw MDM: 09:46 Medical Screening Exam initiated dr5 10:55 Differential Diagnosis Contact Dermatitis, Shingles, eczema. Data reviewed: vital dr5 signs, nurses notes. Care significantly affected by the following chronic conditions: Hypertension, Hyperlipidemia. Care significantly affected by the following Social Determinants of Health: Poor access to healthcare and/or lack of insurance, Poor access to transportation, Problems related to employment. Counseling: I had a detailed discussion with the patient and/or guardian regarding the historical points, exam findings, and any diagnostic results supporting the discharge/admit diagnosis, the presence of at least one elevated blood pressure reading (>120/80) during this emergency department visit, the need for outpatient follow up, for definitive care, a family practitioner, to return to the emergency department if symptoms worsen or persist or if there are any questions or concerns that arise at home. ED course: Offered patient dexamethasone injection but patient reports that he does not want it. Will give patient steroid dose pack as requested and have patient follow-up with primary care doctor. All questions answered.. Administered Medications: No medications were administered Disposition Summary: 09/18/24 09:53 Discharge Ordered Notes: Location: Home dr5 Condition: Stable dr5 Diagnosis - Allergic contact dermatitis due to plants, except food dr5 Followup: dr5 - With: Emergency Department - When: As needed - Reason: Worsening of condition Followup: dr5 - With: Private Physician - When: 1 - 2 days - Reason: Recheck today's complaints, Continuance of care, Re-evaluation by your physician Discharge Instructions: - Discharge Summary Sheet dr5 - Contact Dermatitis dr5 Forms: - Medication Reconciliation Form dr5 - Patient Portal Instructions dr5 - Leadership Thank You Letter dr5 Prescriptions: - timolol 0.25 % Ophthalmic drops - instill 1 drop OPHTHALMIC route 3 times per day for 30 days; 50 drop; Refills: dr5 0, Product Selection Permitted - Medrol (Michel) 4 mg Oral Tablets, Dose Pack - take 1 tablet ORAL route as directed - follow package instructions; 1 packet; dr5 Refills: 0, Product Selection Permitted Addendum: 09/20/2024 12:33 Co-signature as Attending Physician, Bib Villatoro MD I agree with the assessment and c anderson plan of care. Signatures: Bib Villatoro MD MD cha Williams, Irene, RN RN Johann Brown, ROLLER MILL TENDER-C ROLLER MILL TENDER-Cdr5 Corrections: (The following items were deleted from the chart) 09/18 10:50 10:30 Patient is a 69-year-old male with history of hypertension hyperlipidemia coming dr5 in with rash to bilateral forearms since . dr5 10:54 10:49 Eye Exam: Fluorescein stain exam and tetracaine used completed in room. dr5 dr5 10: 10:49 Constitutional: Right eye pain since yesterday. dr5 dr5 10: 10:49 Constitutional: The patient appears in no acute distress, dr5 dr5 : 10:49 Head/face: Exam is negative for acute changes, obvious evidence of injury or dr5 deformity, abrasion(s), dr5 : 10:49 Eyes: Periorbital structures: erythema, that is mild, on the right supraorbital dr5 ridge, swelling, on the right supraorbital ridge, abrasion, is not appreciated, contusion, is not appreciated, ecchymosis, is not appreciated, Pupils: no acute changes, equal, round, and reactive to light and accomodation, Conjunctiva: normal, no acute changes, Corneas: are normal, no acute changes, abrasion, that is small, on the right, at 3 o'clock, foreign body, is not appreciated, a fluorescein strip employed to appreciate the findings, dr5 : 10:49 ENT: Exam is negative for dr5 dr5 10: 10:49 Neck: Exam negative for dr5 dr5 10: 10:49 Chest/axilla: Exam negative for dr5 dr5 10: 10:49 Cardiovascular: Exam negative for dr5 dr5 : 10:49 Respiratory: Exam negative for dr5 dr5 : 10:49 Back: Exam negative for dr5 dr5 10: 10:49 Skin: Exam negative for dr5 dr5 10: 10:49 Neuro: Exam negative for acute changes, dr5 dr5
--- NOTE | 2024-09-18 09:54 | ER ---
Nurse's Notes [facility] Name: Rupert Augustin Age: 69 yrs Sex: Male : 1955 Arrival Date: 09/18/2024 Time: 09:41 Bed IW1 Private MD: Diagnosis: Allergic contact dermatitis due to plants, except food Presentation: 09/18 09:48 Chief complaint: Patient states: got into some poison boogie on , rash to arms. iw Coronavirus screen: At this time, the client does not indicate any symptoms associated with coronavirus-19. Ebola Screen: No symptoms or risks identified at this time. Initial Sepsis Screen: Does the patient meet any 2 criteria? No. Patient's initial sepsis screen is negative. Does the patient have a suspected source of infection? No. Patient's initial sepsis screen is negative. Risk Assessment: Do you want to hurt yourself or someone else? Patient reports no desire to harm self or others. 09:48 Method Of Arrival: Ambulatory iw 09:48 Acuity: ANA 4 iw Historical: - Allergies: 09:49 No Known Allergies; iw - PMHx: 09:49 Hypertensive disorder; iw 09:49 Hypercholesterolemia; iw Screenin:50 [facility] ED Fall Risk Assessment (Adult) History of falling in the last 3 months, iw including since admission No falls in past 3 months (0 pts) Confusion or Disorientation No (0 pts) Intoxicated or Sedated No (0 pts) Impaired Gait No (0 pts) Mobility Assist Device Used No (0 pt) Altered Elimination No (0 pt) Score/Fall Risk Level 0 - 2 = Low Risk Oriented to surroundings, Maintained a safe environment. Abuse screen: Denies threats or abuse. Nutritional screening: No deficits noted. Tuberculosis screening: No symptoms or risk factors identified. Assessment: 09:50 General: Appears in no apparent distress. Behavior is calm, cooperative. Neuro: Level iw of Consciousness is awake, alert, obeys commands, Oriented to person, place, time, situation. Cardiovascular: Patient's skin is warm and dry. Respiratory: Respiratory effort is even, unlabored, Respiratory pattern is regular, symmetrical. Derm: Skin is intact, is healthy with good turgor, Rash noted that is itchy, on right arm and left arm. Musculoskeletal: Range of motion: intact in all extremities. Vital Signs: 09:48 BP 160 / 98; Pulse 81; Resp 16; Pulse Ox 100% on R/A; iw ED Course: 09:44 Patient arrived in ED. im 09:46 [facility] 09:46 Bib Villatoro MD is Attending Physician. dr5 09:49 Triage completed. iw 09:49 Arm band placed on. iw 09:50 No provider procedures requiring assistance completed. Patient did not have IV access iw during this emergency room visit. 09:51 Patient has correct armband on for positive identification. iw 10:01 Livier Soto, RN is Primary Nurse. iw Administered Medications: No medications were administered Medication: 09:50 VIS not applicable for this client. iw Outcome: 09:53 Discharge ordered by . dr5 10:02 Patient left the ED. iw Signatures: Livier Soto, RN RN Sushila Bethea Johann Hurt FNP-C IT ARCHITECTURE CONSULTANT-Cdr5
[2024-09-18 10:07] VITALS: BP 160/98; O2SAT 100
== END 2024-09-18 10:02 | disposition home or self-care (01) ==
LOC: ER 09:41
DX: L23.7 Allergic contact dermatitis due to plants, except food (principal)
CPT/HCPCS: 99281